=== PATIENT | male | born 1970 | race Caucasian/White ===

== ENCOUNTER → 2018-11-20 08:24 | Outpatient (CLI) | payer MEDICAID, SELFPAY ==
[2017-01-08 07:56] VITALS: BMI 34.7
[2018-11-20 10:24] LABS: Anion Gap 8 (5-15); BUN 18 mg/dL (7-18); BUN/Creat Ratio 17.6 RATIO (10-20); Calcium,Total 8.7 mg/dL (8.5-10.1); Chloride 105 mmol/L (98-107); Cholesterol 159 mg/dL (200); Creatinine, Serum 1.02 mg/dL (0.70-1.30); EST Glomerular Filtration Rate 82 mL/min (>60); Est Glom Filt Rate - Afr Amer 99 mL/min (>60); Glucose 86 mg/dL (74-106); High Density Lipoprotein 54 mg/dL; PSA,Total - Annual Screen 0.79 ng/mL (0.00-4.00); Potassium 4.4 mmol/L (3.5-5.1); Sodium Level 141 mmol/L (136-145); Triglycerides 70 mg/dL; Very Low Density Lipoprotein 14 mg/dL (5-40)
== END ==
PROVIDERS: Family Provider Family Medicine; PCP Family Medicine; Referring Provider Family Medicine; Visit Provider Family Medicine
DX: Z13.220 Encounter for screening for lipoid disorders (principal); Z12.5 Encounter for screening for malignant neoplasm of prostate; Z13.1 Encounter for screening for diabetes mellitus
CPT/HCPCS: 36415; 80048; 80061; 84153; G0103

== ENCOUNTER → 2019-11-11 09:14 | Outpatient (CLI) | payer OTHER, SELFPAY ==
[2017-01-08 07:56] VITALS: BMI 34.7
[2019-11-11 10:28] LABS: Absolute Lymphocyte Count 1.58 X10^3/uL (0.83-4.51); Absolute Neutrophil Count 3.2 X10^3/uL (2.0-7.7); Basophil# 0.04 X10^3/uL; Basophil% 0.7 % (0-1); Eosinophil# 0.21 X10^3/uL; Eosinophils% 3.8 % (0-5); Hematocrit 43.2 % (40-54); Hemoglobin 14.2 g/dL (13.0-16.5); Lymphocyte # 1.58 X10^3/ul (4.0); Lymphocyte % 28.6 % (19-41); Mean Corp Hgb Conc 32.9 g/dL (32-36); Mean Corpuscular Hgb 29.3 pg (27.0-32.0); Mean Corpuscular Volume 89.3 fL (80-94); Mean Platelet Vol. 10.3 fl (6.2-12.0); NRBC Flagged by Analyzer 0 % (0-5); Neutrophil # 3.19 X10^3/uL (2.7-7.7); Neutrophil % 57.7 % (47-70); Platelet Count 273 K/mm3 (150-450); RBC Distribution Width CV 12.8 % (11.6-14.6); RBC Distribution Width SD 42.5 fl (35.1-43.9); Red Blood Count 4.84 M/mm3 (4.6-6.2); White Blood Count 5.5 K/mm3 (4.4-11.0)
[2019-11-11 10:41] LABS: Erythrocyte Sedimentation Rate 41 mm/hr (0-20)
[2019-11-11 11:16] LABS: Vitamin D,25 Hydroxy 13.6 ng/mL (29.95-100.01)
[2019-11-11 11:39] LABS: ALB/GLOB Ratio 0.8 RATIO (0.9-2.4); AST(SGOT) 14 U/L (15-37); Alanine Aminotransfer ALT/SGPT 20 U/L (16-61); Albumin, Serum 3.9 g/dL (3.2-5.0); Alkaline Phosphatase 86 U/L (45-117); Anion Gap 5 (5-15); BUN 16 mg/dL (7-18); BUN/Creat Ratio 15.4 RATIO (10-20); Calcium,Total 9.1 mg/dL (8.5-10.1); Chloride 106 mmol/L (98-107); Creatinine, Serum 1.04 mg/dL (0.70-1.30); EST Glomerular Filtration Rate 80 mL/min (>60); Est Glom Filt Rate - Afr Amer 97 mL/min (>60); Globulin 4.7 g/dL (2.2-4.2); Glucose 89 mg/dL (74-106); Protein, Total 8.6 g/dL (6.4-8.2); Sodium Level 140 mmol/L (136-145); Thyroid Stim Hormone (TSH) 1.44 uIU/mL (0.358-3.74)
== END ==
PROVIDERS: Family Provider Family Medicine; PCP Family Medicine; Referring Provider Family Medicine; Visit Provider Family Medicine
DX: E55.9 Vitamin D deficiency, unspecified (principal); E66.9 Obesity, unspecified; Z12.5 Encounter for screening for malignant neoplasm of prostate
CPT/HCPCS: 36415; 80053; 82306; 84443; 85025; 85652

== ENCOUNTER → 2020-11-29 17:39 | Outpatient (CLI) | payer OTHER, SELFPAY ==
[2017-01-08 07:56] VITALS: BMI 34.7
--- NOTE | 2020-11-29 18:08 | MRI_ITS ---
STUDY: MRI BRAIN WITH AND WITHOUT CONTRAST REASON FOR EXAM: Male, 49 years old. 4th nerve palsy,double vision x 2 months TECHNIQUE: Standardized multiplanar fat and water weighted pulse sequences were obtained. IV 19cc dotarem was administered for the contrast portion of the examination. COMPARISON: None. FINDINGS: Normal size of the ventricles and extra-axial spaces for the patient''s age. Normal white matter tracts of the supratentorial brain. Normal bilateral basal ganglia. Normal thalami. There is no extra-axial fluid accumulation. Normal flow voids within the major intracranial circulation suggesting patency by spin echo criteria. Normal venous enhancement. There is no enhancing intra-axial or extra-axial abnormality. Normal sella turcica, pituitary gland, infundibular stalk, optic chiasm and hypothalamus. Normal tectal plate and pineal gland. Normal midbrain, anitra and medulla. Normal cerebellum. Normal basal cisterns. Normal bilateral temporal bones. Normal bilateral internal auditory canals. No demonstrated orbital abnormality, within the constraints of a routine brain study. Normal visualized paranasal sinuses. Normal calvarium and skull base. Normal visualized soft tissue structures. Normal visualized upper cervical spine. MRI/Brain W/WO Contrast IMPRESSION: Normal unenhanced and enhanced MRI of the brain. There is no abnormal mass in the posterior fossa are in the brainstem. The cavernous sinuses are unremarkable. Electronically Signed: Kymberly العراقي, at 23:55 EST Tel , Service support ,
== END ==
PROVIDERS: PCP Family Medicine; Referring Provider Family Medicine; Visit Provider Family Medicine
DX: H49.10 Fourth [trochlear] nerve palsy, unspecified eye (principal)
CPT/HCPCS: 70553; A9575

== ENCOUNTER → 2020-12-04 07:03 | Outpatient (CLI) | payer OTHER, SELFPAY ==
[2020-12-04 10:08] LABS: Erythrocyte Sedimentation Rate 14 mm/hr (0-20)
[2020-12-04 10:10] LABS: Absolute Lymphocyte Count 2.12 X10^3/uL (0.83-4.51); Absolute Neutrophil Count 3.4 X10^3/uL (2.0-7.7); Basophil# 0.04 X10^3/uL; Basophil% 0.6 % (0-1); Eosinophil# 0.25 X10^3/uL; Eosinophils% 3.9 % (0-5); Hematocrit 39.4 % (40-54); Hemoglobin 12.9 g/dL (13.0-16.5); Lymphocyte # 2.12 X10^3/ul (4.0); Lymphocyte % 32.8 % (19-41); Mean Corp Hgb Conc 32.7 g/dL (32-36); Mean Corpuscular Hgb 29.5 pg (27.0-32.0); Mean Platelet Vol. 10.4 fl (6.2-12.0); Monocyte# 0.64 X10^3/uL; Monocyte% 9.9 % (0-10); NRBC Flagged by Analyzer 0 % (0-5); Neutrophil % 52.6 % (47-70); Platelet Count 256 K/mm3 (150-450); RBC Distribution Width CV 12.7 % (11.6-14.6); RBC Distribution Width SD 42.1 fl (35.1-43.9); Red Blood Count 4.38 M/mm3 (4.6-6.2); White Blood Count 6.5 K/mm3 (4.4-11.0)
[2020-12-04 10:16] LABS: Vitamin D,25 Hydroxy 27.6 ng/mL
[2020-12-04 10:47] LABS: ALB/GLOB Ratio 0.8 RATIO (0.9-2.4); AST(SGOT) 13 U/L (15-37); Alanine Aminotransfer ALT/SGPT 23 U/L (16-61); Albumin, Serum 3.6 g/dL (3.2-5.0); Alkaline Phosphatase 74 U/L (45-117); Anion Gap 3 (5-15); BUN 17 mg/dL (7-18); BUN/Creat Ratio 16.2 RATIO (10-20); Calcium,Total 8.7 mg/dL (8.5-10.1); Chloride 107 mmol/L (98-107); Cholesterol 180 mg/dL (200); Creatinine, Serum 1.05 mg/dL (0.70-1.30); EST Glomerular Filtration Rate 79 mL/min (>60); Est Glom Filt Rate - Afr Amer 95 mL/min (>60); Globulin 4.4 g/dL (2.2-4.2); Glucose 101 mg/dL (74-106); High Density Lipoprotein 59 mg/dL; PSA,Total - Annual Screen 0.59 ng/mL (0.00-4.00); Potassium 4.3 mmol/L (3.5-5.1); Sodium Level 140 mmol/L (136-145); Thyroid Stim Hormone (TSH) 2.22 uIU/mL (0.358-3.74); Triglycerides 80 mg/dL; Very Low Density Lipoprotein 16 mg/dL (5-40)
== END ==
PROVIDERS: PCP Family Medicine; Referring Provider Family Medicine; Visit Provider Family Medicine
DX: Z13.220 Encounter for screening for lipoid disorders (principal); H05.10 Unspecified chronic inflammatory disorders of orbit; E55.9 Vitamin D deficiency, unspecified; Z12.5 Encounter for screening for malignant neoplasm of prostate
CPT/HCPCS: 36415; 80053; 80061; 82306; 84153; 84443; 85025; 85652; G0103

== ENCOUNTER → 2020-12-20 16:00 | Outpatient (CLI) | payer OTHER, SELFPAY ==
[2017-01-08 07:56] VITALS: BMI 34.7
== END ==
PROVIDERS: PCP Family Medicine; Referring Provider Family Medicine; Visit Provider Surgery
DX: Z20.828 Contact with and (suspected) exposure to other viral communicable diseases (principal)
CPT/HCPCS: 87426; C9803

== ENCOUNTER 2022-01-05 11:07 | Emergency (ER) | payer OTHER, SELFPAY ==
[2022-01-05 11:08] VITALS: BP 165/76; PULSE 78; RESP 20; TEMP 36.6; O2SAT 99; BMI 30.1
--- NOTE | 2022-01-05 11:29 | EDS_ITS ---
HPI History of Present Illness Chief Complaint: Lower Extremity Injury Narrative Narrative: Patient presents with right groin pain that has had for the last few days. He complains of sharp, searing sensation in his right quadriceps. He has had problems with iliotibial band, piriformis syndrome, and sciatica in the past but this does not feel the same. It is more on the inner aspect of his right thigh and in the inguinal area radiating downward. He denies any fevers or chills. No saddle anesthesias. No loss of bowel or bladder. He saw chiropractor the other day, 2 days ago, who did manipulation and release work on his right hip. Although he caused a bruise on his right hip from compressing the pelvis, patient had problems with his right groin prior to this. He presents for evaluation. He has been taking a Medrol Dosepak and naproxen without full relief of his symptoms. [facility] Medical History Crohn's disease Home Medications omega-3 fatty acids-fish oil [[place] 3 Fish Oil Softgel] 1 ea PO DAILY 01/08/17 [History Last Taken Unknown] cetirizine 10 mg PO DAILY 12/13/20 [History Last Taken Unknown] cholecalciferol (vitamin D3) 50 mcg PO DAILY 12/13/20 [History Last Taken Unknown] orphenadrine citrate 100 mg PO BID #20 tab 01/05/22 [Rx Last Taken Unknown] Allergy/AdvReac Type Severity Reaction Status Date / Time mercaptopurine Allergy fever Verified 01/05/22 11:10 Social History Smoking Status: Never smoker ROS ROS ED ROS Narrative Constitutional: No fever, no chills. HEENT: No sore throat. No neck pain. No loss of vision. No rhinorrhea. Cardiovascular: No chest pain. No palpitations. No pedal edema. Respiratory: No cough, no shortness of breath. Abdominal: No abdominal pain. No nausea. No vomiting. Genitourinary: No dysuria. No hematuria. Musculoskeletal: Right inguinal pain with radiation to quadriceps. Neurologic: No headaches. No dizziness. No lightheadedness. Skin: No rash. No change in color. Psychiatric: No depression. No anxiety. EXAM Physical Exam Narrative Exam Narrative: Afebrile. Vital signs noted. HEENT: Normocephalic. Atraumatic. PERRL, EOMI. Neck soft and supple. No point tenderness or step off. Cardiovascular: Regular rate and rhythm. No murmurs, rubs, or gallops appreciated. Respiratory: No tachypnea. Lungs clear to auscultation bilaterally. Gastrointestinal: Abdomen soft, nontender, with normoactive bowel sounds. No rebound or guarding. Neurological: Awake. Alert. Nonfocal, nonlateralizing. Skin: No rash. Normal color. No pallor. Musculoskeletal: No pedal edema. Full range of motion extremities. Pelvis stable. No vertebral point tenderness or step-off of lumbar area. No pain in sciatic notch. Neurovascular intact distally. Straight leg raising is negative bilaterally. DTRs equal and symmetric. No tenderness to inguinal area, no palpable hernia. Const Vital Signs: 01/05/22 11:08 Temperature 97.9 F Temperature Source Temporal Pulse Rate 78 Respiratory Rate 20 H Blood Pressure 165/76 H Blood Pressure Mean 105 Pulse Ox 99 Oxygen Delivery Method Room Air MDM MDM MDM Narrative Medical decision making narrative: X-rays will be obtained of the hip and pelvis. He is already on anti-inflammatories. He will be given an intramuscular injection of Norflex here in the emergency department. His x-rays show no evidence of fracture or degenerative changes. Upon repeat examination, he is resting comfortably. He feels mildly improved. He will rest the area and ice the affected area over the next few days and follow-up with his primary care physician. He was given a prescription for Norflex tablets for the next 10 days. He will finish his anti-inflammatories/Medrol dose pack. I feel he can be discharged safely home with follow-up. Return instructions to the emergency department were reviewed. Disposition is discharged home in stable condition. Radiography Diagnostic Testing: Clinical Impression(s) from Imaging Studies Hip/Pelvis X-Ray 01/05/22 11:35 IMPRESSION: No demonstrated acute osseous changes. Electronically Signed: Anastacio Velez, at 11:51 EST , Discharge Plan Triage Chief Complaint: Lower Extremity Injury ED Provider: Tito Kelley Dx/Rx/DC Orders Clinical Impression: Right groin pain Instructions: Medicine for Pain, ED Hip Strain Prescriptions: New orphenadrine citrate 100 mg tablet extended release 100 mg PO BID Qty: 20 RF: 0 No Action One-Per-Day [place]-3 1 EACH capsule,delayed release(DR/EC) 1 ea PO DAILY RF: 0 cholecalciferol (vitamin D3) 50 MCG tablet 50 mcg PO DAILY RF: 0 cetirizine 10 MG capsule 10 mg PO DAILY RF: 0 Primary Care Provider: Aniket Paulson Referrals: Aniket Paulson MD [Primary Care Provider] - 3-5 Days if not improving Disposition Disposition: Home, Self Care
--- NOTE | 2022-01-05 11:35 | RAD_ITS ---
STUDY: X-RAY - PELVIS AND RIGHT HIP REASON FOR EXAM: Male, 51 years old. Pain TECHNIQUE: 3 views of the pelvis and hip. COMPARISON: None. FINDINGS: There is a non-specific bowel gas pattern. Surgical clips in the region of the scrotum. Normal bilateral iliac wings, sacroiliac joints and visualized sacrum. Normal bilateral superior and inferior pubic rami. Normal pubic symphysis. Normal bilateral ischial tuberosities. Normal visualized femoral head. Normal acetabulum. Normal hip joint. RAD/HIP, UNI W/ Pelvis 2-3 Views IMPRESSION: No demonstrated acute osseous changes. Electronically Signed: Anastacio Velez, at 11:51 EST ,
[2022-01-05] MEDS: Orphenadrine 60 MG/2 ML Ampul IM (11:43)
[2022-01-05 12:09] VITALS: PULSE 84; RESP 16; O2SAT 99
--- NOTE | 2022-01-05 12:09 | ED.RN ---
THIS NURSE REVIEWED D/C INSTRUCTIONS WITH PT AND VISITOR. BOTH VERBALIZED UNDERSTANDING OF INSTRUCTIONS. PT DENIES FURTHER NEEDS OR QUESTIONS AT THIS TIME.
== END 2022-01-05 12:10 | disposition home or self-care (01) ==
PROVIDERS: Emergency Provider Emergency Medicine; PCP Family Medicine; Visit Provider Emergency Medicine
DX: R10.31 Right lower quadrant pain (principal); K50.90 Crohn's disease, unspecified, without complications; S70.01XA Contusion of right hip, initial encounter; X58.XXXA Exposure to other specified factors, initial encounter
CPT/HCPCS: 73502; 96372; 99282

== ENCOUNTER 2022-01-12 11:24 | Emergency (ER) | payer OTHER, SELFPAY ==
[2022-01-12 11:25] VITALS: BP 144/88; PULSE 61; RESP 16; TEMP 36.6; O2SAT 99; BMI 30.4
--- NOTE | 2022-01-12 11:47 | ED.VIS.LOWEX ---
HPI <HARRY Briceño - Last Filed: 01/12/22 13:42> History of Present Illness Chief Complaint: Lower Extremity Injury Narrative Narrative: 51-year-old male presents with right groin pain x2 weeks. He has a sharp painful sensation in his right inguinal crease and right quadriceps that is worse with hip extension or bearing weight. Pain is on the inner aspect of his right thigh and radiates downward. He occasionally has tingling in the medial lower calf. He feels most comfortable keeping his right hip externally rotated. No back pain. No fever, saddle anesthesia, or bladder/bowel incontinence. There was no trauma. He saw a chiropractor with manipulation which did not help. He was seen at the ER on 01/05 and had x-rays of his hip and pelvis which were negative. He has been taking prednisone, naproxen, and Flexeril without relief. [facility] <HARRY Briceño - Last Filed: 01/12/22 13:42> [facility] Medical History Crohn's disease Home Medications omega-3 fatty acids-fish oil [[place] 3 Fish Oil Softgel] 1 ea PO DAILY 01/08/17 [History Last Taken Unknown] cetirizine 10 mg PO DAILY 12/13/20 [History Last Taken Unknown] cholecalciferol (vitamin D3) 50 mcg PO DAILY 12/13/20 [History Last Taken Unknown] orphenadrine citrate 100 mg PO BID #20 tab 01/05/22 [Rx Last Taken Unknown] cyclobenzaprine mg 01/12/22 [History Last Taken Unknown] hydrocodone-acetaminophen 1 tab PO Q6H PRN PRN 3 Days #12 tablet 01/12/22 [Rx Last Taken Unknown] methylprednisolone [Medrol (Maged)] 01/12/22 [History Last Taken Unknown] Allergy/AdvReac Type Severity Reaction Status Date / Time mercaptopurine Allergy fever Verified 01/12/22 11:27 Social History Smoking Status: Never smoker ROS <HARRY Briceño - Last Filed: 01/12/22 13:42> ROS ED ROS Narrative Constitutional: Negative for fever, chills, malaise. Eyes: Negative for visual change. ENT: Negative for sore throat, ear pain, rhinorrhea. CVS: Negative for palpitations, chest pain, syncope. Respiratory: Negative for shortness of breath, cough, orthopnea. GI: Negative for abdominal pain, nausea, vomiting, diarrhea, constipation, melena, hematochezia. : Negative for dysuria, hematuria or frequency. Neuro: Negative for headache, motor/sensory dysfunction. Skin: Negative for rash, abscess, or wound. Musc: Positive for leg pain. No swelling or trauma. Heme: Negative for easy bruising, bleeding, lymphadenopathy. EXAM <HARRY Briceño - Last Filed: 01/12/22 13:42> Physical Exam Narrative Exam Narrative: CONST: Patient sitting in no acute distress. EYES: Normal inspection. NECK: Normal inspection. RESP: No respiratory distress, CTAB. CVS: Regular rate and rhythm, no murmur, no gallop. ABD: Soft and nontender, no guarding or rebound, nondistended. No tenderness in the inguinal area and no palpable hernia. Back: Normal inspection. No midline spinal tenderness, no step off or crepitus. SKIN: Color normal, no rash, warm, dry, intact. EXTREMITIES: Normal appearance, no pedal edema. Full range of motion of bilateral lower extremities. 5/5 strength in bilateral hip flexion, knee flexion/extension, and DF/PF. Normal sensation to light touch. 2+ dorsalis pedis pulses. Straight leg raise negative bilaterally. 2+ patellar and ankle reflexes. NEURO: Oriented x4. PSYCH: Normal affect. Const Vital Signs: 01/12/22 11:25 Temperature 97.8 F Temperature Source Temporal Pulse Rate 61 Respiratory Rate 16 Blood Pressure 144/88 H Blood Pressure Mean 106 Pulse Ox 99 Oxygen Delivery Method Room Air <Dr. Duyen Ramos MD - Last Filed: 01/12/22 14:09> Physical Exam Const Vital Signs: 01/12/22 11:25 Temperature 97.8 F Temperature Source Temporal Pulse Rate 61 Respiratory Rate 16 Blood Pressure 144/88 H Blood Pressure Mean 106 Pulse Ox 99 Oxygen Delivery Method Room Air MDM <HARRY Briceño - Last Filed: 01/12/22 13:42> [facility] MDM Narrative Medical decision making narrative: Patient presents with atraumatic right inguinal pain radiating down his medial thigh. He appears well nontoxic. Vital signs are within normal limits. On exam he has no midline spinal tenderness or step-offs. His abdomen is soft and nontender with no hernias. There is no reproducible pain in the inguinal region or lower extremities. Bilateral lower extremities appear normal and are neurovascularly intact. Negative straight leg raise bilaterally. He has no reported back pain and no signs or symptoms concerning for cauda equina syndrome or epidural abscess. A few days ago he had plain films of the hip and pelvis which were negative. CT of the pelvis was obtained today and shows no acute findings. Patient symptoms are most consistent with muscular versus nerve impingement in that area. He is already taking muscle relaxers and prednisone at home. I prescribed [place] to take as needed and referred him to orthopedics. He was agreeable with this plan and discharged in stable condition. Diagnosis 1. Right lower extremity pain Radiography Diagnostic Testing: Clinical Impression(s) from Imaging Studies Pelvis CT 01/12/22 11:57 IMPRESSION: Normal unenhanced CT of the pelvis. Electronically Signed: Jesse Savage MD at 13:15 EST , <Dr. Duyen Ramos MD - Last Filed: 01/12/22 14:09> MDM Radiography Diagnostic Testing: Clinical Impression(s) from Imaging Studies Pelvis CT 01/12/22 11:57 IMPRESSION: Normal unenhanced CT of the pelvis. Electronically Signed: Jesse Savage MD at 13:15 EST , Treatment and Re-Evaluation Comments:: Patient seen and evaluated with PA. Patient independently evaluated and examined. In short patient presents with 1-1/2-week history of right groin and medial thigh pain. No known injury. Patient is currently on steroids, muscle relaxers, tramadol. Patient lying in bed no acute distress. Head and neck examination normal. Heart is regular rate and rhythm. Lung sounds are clear. Abdomen is soft and nontender. Right lower extremity examination shows minimal tenderness to the proximal right groin. No palpable hernias. Strong pulse noted. Good range of motion at hip. Strong distal pulses in the lower leg. Patient given analgesics here. Pelvis CT scan obtained to ensure no deep underlying cause of symptoms. This is unremarkable. Patient referred to orthopedics for follow-up and will be written for [place] to take in place of tramadol. Discharge Plan Triage Chief Complaint: Lower Extremity Injury ED Provider: Alee Kaufman Dx/Rx/DC Orders Clinical Impression: Right groin pain Instructions: ED Leg Spasm Prescriptions: New hydrocodone-acetaminophen 5-325 mg tablet 1 tab PO Q6H PRN PRN (Reason: Pain) 3 Days Qty: 12 RF: 0 No Action One-Per-Day [place]-3 1 EACH capsule,delayed release(DR/EC) 1 ea PO DAILY RF: 0 cholecalciferol (vitamin D3) 50 MCG tablet 50 mcg PO DAILY RF: 0 cetirizine 10 MG capsule 10 mg PO DAILY RF: 0 orphenadrine citrate 100 mg tablet extended release 100 mg PO BID Qty: 20 RF: 0 cyclobenzaprine 10 mg tablet RF: 0 methylprednisolone [Medrol (Maged)] 4 mg tablets,dose pack RF: 0 Primary Care Provider: Aniket Paulson Referrals: Aniket Paulson MD [Primary Care Provider] - Girish Mendenhall MD [STAFF PHYSICIAN] - Activity Restrictions/Additional Instructions: The CAT scan of your pelvis/hip showed no acute findings. With the radiation of your pain down her thigh you may be having a nerve or muscle issue that needs further evaluation by orthopedics. I provided an orthopedic referral listed above and he should call to make an appointment. I prescribed [place] which you can take instead of the tramadol in addition to the other medications you are already on at home. Disposition Disposition: Home, Self Care Discharge Date/Time: 01/12/22 13:50
--- NOTE | 2022-01-12 11:57 | CT_ITS ---
STUDY: CT PELVIS WITHOUT CONTRAST REASON FOR EXAM: Male, 51 years old. right groin pain into medial thigh RADIATION DOSAGE (If Supplied By Facility): CTDIvol = ( 12.57 ) mGy, DLP = ( 479.51 ) mGycm TECHNIQUE: Transaxial imaging of the pelvis was performed without oral contrast, and without intravenous administration of contrast material. Individualized dose optimization techniques were used for this CT. COMPARISON: X-ray 01/05/2022 FINDINGS: Normal urinary bladder. Normal visualized small intestine. Normal visualized colon. There is no pelvic fluid. There is no pelvic mass lesion or lymphadenopathy. Normal visualized pelvic arteries. Normal abdominal wall. Normal osseous structures. CT/Pelvis without IV Contrast IMPRESSION: Normal unenhanced CT of the pelvis. Electronically Signed: Jesse Savage MD at 13:15 EST ,
[2022-01-12] MEDS: Orphenadrine 60 MG/2 ML Ampul IM (11:59)
[2022-01-12] MEDS: Ondansetron ODT 4 MG Tablet PO (12:00)
[2022-01-12] MEDS: Ketorolac 15 MG/ML Vial IM (12:06)
[2022-01-12] MEDS: HYDROcodone Bitartrate/Apap 5/325 Tablet PO (13:45)
== END 2022-01-12 13:50 | disposition home or self-care (01) ==
PROVIDERS: Emergency Provider Physician Assistant; PCP Family Medicine; Visit Provider Physician Assistant
DX: M79.604 Pain in right leg (principal); K50.90 Crohn's disease, unspecified, without complications; R10.31 Right lower quadrant pain; Z79.899 Other long term (current) drug therapy
CPT/HCPCS: 72192; 96372; 99283

== ENCOUNTER 2022-01-14 14:55 | Outpatient (CLI) | payer OTHER, SELFPAY ==
--- NOTE | 2022-01-14 15:01 | RAD_ITS ---
STUDY: X-RAY - LUMBOSACRAL SPINE REASON FOR EXAM: Male, 51 years old. LOW BACK PAIN TECHNIQUE: 7 view(s) of the lumbosacral spine were obtained. COMPARISON: 12/26/2015 FINDINGS: Normal lumbar lordosis. Mild dextroscoliosis centered at L4. There is normal alignment of the vertebrae. No subluxation on the flexion or extension views to suggest instability. There is multilevel endplate spondylosis of the lumbar vertebrae. There is multi-level degenerative disc disease with multi-level disc space narrowing. Normal bilateral sacral ala, sacroiliac joints, and visualized sacrum. Normal visualized soft tissue structures. RAD/L/S Spine w Bend Min 6 Vw IMPRESSION: Mild dextroscoliosis with diffuse degenerative disc disease. No instability. Electronically Signed: Jesse Savage MD at 15:41 EST ,
== END 2022-01-14 23:59 | disposition home or self-care (01) ==
LOC: MTLAB 14:58
PROVIDERS: PCP Family Medicine; Referring Provider Physician Assistant Surgical; Visit Provider Physician Assistant Surgical
DX: M24.851 Other specific joint derangements of right hip, not elsewhere classified (principal); M54.50 Low back pain, unspecified
CPT/HCPCS: 72114

== ENCOUNTER 2022-01-18 14:13 | Outpatient (CLI) | payer OTHER, SELFPAY ==
--- NOTE | 2022-01-18 14:14 | MRI_ITS ---
EXAM: MR RIGHT LOWER EXTREMITY WITHOUT INTRAVENOUS CONTRAST, HIP CLINICAL INDICATION: Severe RIGHT groin and leg pain, numbness, muscle cramping TECHNIQUE: Multiplanar and multisequence MR images of the right hip without intravenous contrast. This report was created using [employer] report generation technology. COMPARISON: Jan 12 2022 12:39pm ct FINDINGS: TENDONS: FLEXORS: Unremarkable. Intact. EXTENSORS/HAMSTRING: Unremarkable. Intact. ABDUCTORS: Unremarkable. Intact. ADDUCTORS: Unremarkable. Intact. ROTATORS: Unremarkable. Intact. MUSCLES: Unremarkable. Normal bulk and signal. FLUID: Unremarkable. No joint effusion. No trochanteric bursitis. LABRUM: Unremarkable. No evidence of a tear on this non-arthrogram exam. CARTILAGE: Unremarkable. Articular cartilage intact. BONES/JOINTS: Degenerative findings visualized in the lower lumbar spine. No femoral neck fracture. No avascular necrosis of the femoral head. No sacral insufficiency fracture. No suspicious bone marrow signal alteration. OTHER SOFT TISSUES: Unremarkable. LYMPH NODES: Benign-appearing right inguinal lymph nodes. BOWEL: There is an umbilical hernia containing fat. There is no bowel involvement. There is no incarceration. There is no findings suggesting that this is causing a bowel obstruction. MRI/Lower Ext Joint Only (Routine) IMPRESSION: Degenerative findings visualized in the lower lumbar spine. There are no acute findings of the right hip. Electronically Signed: Ronnie Quiroz MD at 16:54 EST Reading Location ID and State: [id number] / [place] , Service support ,
--- NOTE | 2022-01-18 14:14 | MRI_ITS ---
STUDY: MR Spine Lumbar W/O Contrast 01/18/2022 4:23 PM REASON FOR EXAM: Male, 51 years old. Back pain Severe RIGHT groin and leg pain, numbness, muscle cramping TECHNIQUE: MR Spine Lumbar W/O Contrast Standardized fat and water weighted pulse sequences were obtained. COMPARISON: 01.14.22 xr FINDINGS: T12-L1: Normal endplates. Normal disc height, hydration and morphology. Normal bilateral facet joints. Normal central canal and bilateral lateral recesses. Normal bilateral intervertebral neural foramina. Normal lumbar lordosis. There is no substantial scoliosis. Normal conus medullaris that terminates at the T12-L1. L1-2: Loss of intervertebral disc height. There is endplate spondylosis of the vertebral body. Normal central canal and intervertebral neuroforamina. There is bilateral facet arthropathy. L2-3: Loss of intervertebral disc height. There is endplate spondylosis of the vertebral body. There is bilateral facet arthropathy. Bilateral neural foraminal stenosis. Compression of exiting nerve roots. Posterior disc herniation. Narrowing of the lateral recess. No significant spinal stenosis. L3-4: Loss of intervertebral disc height. There is endplate spondylosis of the vertebral body. There is bilateral facet arthropathy. Bilateral neural foraminal stenosis. Compression of exiting nerve roots. Posterior disc herniation. Narrowing of the lateral recess. No significant spinal stenosis. L4-5: Loss of intervertebral disc height. There is endplate spondylosis of the vertebral body. There is bilateral facet arthropathy. Bilateral neural foraminal stenosis. Compression of exiting nerve roots. Posterior disc herniation. Narrowing of the lateral recess. No significant spinal stenosis. L5-S1: Loss of intervertebral disc height. There is endplate spondylosis of the vertebral body. There is bilateral facet arthropathy. There is bilateral ligamentum flavum thickening. Normal visualized sacral ala. Normal visualized paraspinous soft tissue structures. MRI/Spine Lumbar (Routine) IMPRESSION: Multilevel degenerative changes, as described above. L2-3 to L4-5. Posterior disc herniation. Narrowing of the lateral recess. No significant spinal stenosis. Electronically Signed: Ronnie Quiroz MD at 16:28 EST ,
== END 2022-01-18 23:59 | disposition home or self-care (01) ==
LOC: MRI 14:14
PROVIDERS: PCP Family Medicine; Visit Provider Orthopaedic Surgery
DX: M87.059 Idiopathic aseptic necrosis of unspecified femur (principal); M51.27 Other intervertebral disc displacement, lumbosacral region
CPT/HCPCS: 72148; 73721

== ENCOUNTER 2022-01-21 20:38 | Observation (INO) | payer OTHER, SELFPAY ==
[2022-01-21 20:40] VITALS: BP 173/125; PULSE 128; RESP 24; TEMP 35.6; O2SAT 99; BMI 29.2
[2022-01-21 21:37] VITALS: RESP 18
--- NOTE | 2022-01-21 22:40 | EDS_ITS ---
HPI History of Present Illness HPI Narrative: Right side pain and muscle spasms. Chief Complaint: Lower Extremity Injury Informant: patient and spouse/S.O. 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 Patient has developed in the last 2 weeks pain in his right hip and thigh. He has seen orthopedic physicians today he saw Dr. Campbell the orthopedic spine surgeon. 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 He also saw tumbling barrel painter Dr. Zhu today who did a Kenalog and lidocaine injections to his thigh. And he is having worse pain tonight. He is also recently seen a chiropractor who did manipulation and dry needling of his leg again without significant relief. They are planning to do a nerve block once he has insurance approval. Prior similar symptoms: Yes Recent Illness/Hospitalization: No PFSH [facility] Medical History Crohn's disease Home Medications cyclobenzaprine 10 mg PO 01/12/22 [History Last Taken Unknown] diazepam 01/21/22 [History Last Taken Unknown] docusate sodium 100 mg capsule 100 mg PO DAILY 01/21/22 [History Last Taken Unknown] gabapentin 300 mg capsule 300 mg PO cap 01/21/22 [History Last Taken Unknown] naproxen sodium 220 mg capsule 220 mg PO BID PRN 01/21/22 [History Last Taken Unknown] sennosides 8.6 mg tablet 8.6 mg PO DAILY 01/21/22 [History Last Taken Unknown] Allergy/AdvReac Type Severity Reaction Status Date / Time mercaptopurine Allergy fever Verified 01/21/22 20:43 Family History Grandfather Cancer Mother Hypertension Social History Smoking Status: Never smoker ROS ROS ED ROS Narrative Denies recent illness. Review of Systems ROS Unobtainable: Denies due to encephalopathy Constitutional Constitutional ED: Denies fever(s) Eyes Eyes: Denies change in vision ENT ENT ED: Denies ear pain Cardiovascular Cardiovascular: Denies chest pain Respiratory/Chest Respiratory/Chest: Denies dyspnea Gastrointestinal Gastrointestinal: Denies abdominal pain Genitourinary Genitourinary ED: Denies dysuria Musculoskeletal Musculoskeletal: Denies myalgias Integumentary Denies rash Neurologic Neurologic: Denies headache(s) Psychiatric Psychiatric: Denies depression Endocrine Endocrinology: Denies polyuria Hematologic/Lymphatic Hematologic/Lymphatic: Denies easy bruising Allergic/Immunologic Allergic/Immunologic ED: Denies urticaria EXAM Physical Exam Narrative Exam Narrative: 51-year-old male. Vital signs are stable as of his blood pressure is elevated 173/125. He is in obvious pain. H EENT exam unremarkable. Neck nontender. Lungs are clear equal symmetrical with. Heart tachycardic rate about 125. Chest were nontender. Abdomen soft nontender normal bowel sounds no peritoneal signs. He is moving all 4 extremities. He has normal motor strength and sensation of both lower extremities. He is a strong DP pulse in his right lower leg. Dorsi plantarflexion intact. Normal sensation. He has a bruise on his right thigh from the manipulation a week or so ago. He has normal flexion-extension of his right hip, knee and ankle and foot. Calf is nontender is no edema. There is injections on his right thigh but there is no redness or warmth no signs of infection. No significant swelling. He has mild quad atrophy compared to the left. Const Vital Signs: 01/21/22 20:40 01/21/22 21:37 01/21/22 23:02 Temperature 96.1 F L Temperature Source Temporal Pulse Rate 128 H Respiratory Rate 24 H 18 18 Blood Pressure 173/125 H Blood Pressure Mean 141 Pulse Ox 99 Oxygen Delivery Method Room Air 01/22/22 00:15 Temperature 97.9 F Temperature Source Temporal Pulse Rate 75 Respiratory Rate 16 Blood Pressure 135/85 H Blood Pressure Mean 101 Pulse Ox 100 Oxygen Delivery Method Room Air Positive well nourished and well developed; Negative for obese, cachectic, contractures or unkempt General Appearance ED: well developed and NAD; Negative for unkempt, cachectic or contractures Nutritional Appearance: Negative for cachectic or obese HEENT Reports moist mucous membranes normocephalic and atraumatic Neck full ROM and supple Thyroid: Negative for tender Chest Wall inspection of chest normal and palpation of chest normal Resp normal respiratory effort, no retractions and clear to auscultation bilaterally Auscultation: Negative for rales, rhonchi or wheezes Cardio regular rhythm, S1 normal heart sound, S2 normal heart sound and no murmurs; Negative for regular rate Rate: tachycardic GI non-tender, non-distended and no masses Inspection: Negative for abdominal distention Auscultation: normoactive bowel sounds; Negative for hyperactive bowel sounds or hypoactive bowel sounds Palpation: soft; Negative for tender, guarding or rebound tenderness present Back/Spine no CVA tenderness General Back: Negative for CVA tenderness Extremity normal to inspection and full ROM General Extremety ED: Negative for cyanosis or edema General Extremity: Negative for cyanosis or edema Neuro oriented x3 and moves all extremities Sensorium / Orientation: alert, oriented to person, oriented to place and oriented to time; Negative for orientation impaired, confused, lethargic or stuporous Motor Exam: strength 5/5 throughout Psych mental status grossly normal Appearance: Negative for unkempt Mood & Affect: Negative for anxious Skin no wounds Lesions: no lesions Rashes: no rashes Trauma: Negative for abrasion or laceration MDM MDM MDM Narrative Medical decision making narrative: Patient with right thigh pain. He has had this condition now about 2 to 3 weeks. He does not have a specific diagnosis. Today after having injections at the site he is having more muscle spasms and increased pain. There is no signs of infection. There is no signs of any vascular issue. He has normal strength and range of motion. Patient be treated with IV Dilaudid, Toradol and Zofran for nausea. And reassess. He is already had this worked up with both MRIs and imaging. No further testing to do at this time. Repeat exam patient is doing much better at 12:15 AM. His pain is significantly improved. With movement he has recurrence of the pain but is much better than his presentation. Again in his right lower extremity otherwise is neurovascularly intact. Normal strength. Sensation. Dorsi plantarflexion. DP pulse. No signs of infection. No redness or swelling. Patient requested admission for pain control I have the hospitalist on page. Discharge Plan Triage Chief Complaint: Lower Extremity Injury ED Provider: Mike Caballero Dx/Rx/DC Orders Clinical Impression: Neuropathic pain, Intractable pain Prescriptions: No Action gabapentin 300 mg capsule 300 mg PO RF: 0 naproxen sodium 220 mg capsule 220 mg PO BID PRNRF: 0 docusate sodium [Stool Softener] 100 mg capsule 100 mg PO DAILY RF: 0 sennosides [Vegetable Laxative] 8.6 mg tablet 8.6 mg PO DAILY RF: 0 cyclobenzaprine 10 mg tablet 10 mg PO RF: 0 diazepam 5 mg tablet RF: 0 Primary Care Provider: Aniket Paulson Referrals: Aniket Paulson MD [Primary Care Provider] - Disposition Disposition: Acute Care Hospital [facility]
[2022-01-21] MEDS: Ketorolac 30 MG/ML Syringe IV (22:53)
[2022-01-21] MEDS: HYDROmorphone 1 MG/ML Syringe IV (22:53)
[2022-01-21] MEDS: Ondansetron 4 MG/2 ML Vial IV (22:53)
[2022-01-21 23:02] VITALS: RESP 18
[2022-01-22 00:15] VITALS: BP 135/85; PULSE 75; RESP 16; TEMP 36.6; O2SAT 100
--- NOTE | 2022-01-22 00:36 | HP.PCM_ITS ---
HPI - General General Date of Admission: 01/22/22 HPI Narrative DENISSE ACKERMAN, is a 51 M who presents to the emergency room with intractable pain in his right quadricep. Patient has significant pain over the last several weeks of pain in the right leg for which she is seeing me in the office and diagnosed with rectus for Viraj muscle strain who was also given referral to orthopedic surgery for evaluation of possibility for lower spine issues. MRI of the lower spine is unremarkable based on assessment by Dr. Campbell. Earlier today the patient was given steroid injections into the quadricep muscle at 3 locations. The patient had subsequent excruciating pain upon arriving at home rating it 10/10. He was unable to get comfortable and he was near the point of screaming. Patient has received some Dilaudid in the emergency room and had minor relief of symptoms along with a dose of Toradol. He will be admitted for further pain management overnight for observation. [facility] Medical History Crohn's disease Home Medications cyclobenzaprine 10 mg PO 01/12/22 [History Last Taken Unknown] diazepam 01/21/22 [History Last Taken Unknown] docusate sodium 100 mg capsule 100 mg PO DAILY 01/21/22 [History Last Taken Unknown] gabapentin 300 mg capsule 300 mg PO cap 01/21/22 [History Last Taken Unknown] naproxen sodium 220 mg capsule 220 mg PO BID PRN 01/21/22 [History Last Taken Unknown] sennosides 8.6 mg tablet 8.6 mg PO DAILY 01/21/22 [History Last Taken Unknown] Allergy/AdvReac Type Severity Reaction Status Date / Time mercaptopurine Allergy fever Verified 01/21/22 20:43 Family History Grandfather Cancer Mother Hypertension Social History Smoking Status: Never smoker ROS Constitutional Constitutional: Denies chills or fever(s) Eyes Eyes: Denies blurry vision ENT HEENT: Denies abnormal hearing Cardiovascular Cardiovascular: Denies chest pain Respiratory/Chest Respiratory/Chest: Denies cough Gastrointestinal Gastrointestinal: Denies abdominal pain Genitourinary Genitourinary: Denies dysuria Musculoskeletal Musculoskeletal: Reports extremity pain Integumentary Integumentary: Denies dry skin Neurologic Neurologic: Reports abnormal gait Psychiatric Psychiatric: Denies anxiety Vital Signs Vital Signs Vital Signs: 01/21/22 20:40 01/21/22 21:37 01/21/22 23:02 Temperature 96.1 F L Temperature Source Temporal Pulse Rate 128 H Respiratory Rate 24 H 18 18 Blood Pressure 173/125 H Blood Pressure Mean 141 Pulse Ox 99 Oxygen Delivery Method Room Air 01/22/22 00:15 Temperature 97.9 F Temperature Source Temporal Pulse Rate 75 Respiratory Rate 16 Blood Pressure 135/85 H Blood Pressure Mean 101 Pulse Ox 100 Oxygen Delivery Method Room Air Weight Weight: 204 lb Body Mass Index (BMI) 29.2 Physical Exam Const oriented x3 HEENT head/scalp atraumatic Eyes PERRL Neck supple Resp normal respiratory effort and clear to auscultation bilaterally Cardio regular rate, regular rhythm, S1 normal heart sound and S2 normal heart sound GI normal to inspection, nondistended, normoactive bowel sounds Extremity Extremity Narrative: tenderness/spasm of right quad Skin General Skin Exam: no breakdown Neuro CN's II-XII intact bilaterally Psych affect normal Assessment & Plan Assessment/Plan (1) Neuropathic pain: (2) Intractable pain: (3) Quadriceps weakness: PLAN: 1 intractable pain of right quadricep muscle?admit patient for observation overnight- continue Dilaudid 1 mg IV daily 3 hours as needed significant pain, 3 start cyclobenzaprine 10 mg p.o. 3 times daily, restart Neurontin 300 mg p.o. 3 times daily. If pain is resolved patient may be discharged to follow-up with pathology as an outpatient otherwise he may need inpatient consult with pain management. Charges/Coding Visit Charges OBSV E&M: 87411 Initial observation care L2
[2022-01-22 01:19] VITALS: BMI 29.0
[2022-01-22 01:32] VITALS: BP 150/89; PULSE 72; RESP 18; TEMP 36.9; O2SAT 100
[2022-01-22] MEDS: Gabapentin 300 MG Capsule PO ×3 (01:44→12:27)
[2022-01-22] MEDS: cycloBENZAPRine HCl 10 MG Tablet PO ×3 (01:44→14:26)
[2022-01-22] MEDS: HYDROmorphone 1 MG/ML Syringe IV ×3 (01:51→15:34)
[2022-01-22] MEDS: 0.9% Saline Lock 10 ML Syringe IV ×3 (01:51→15:37)
[2022-01-22 05:50] LABS: Absolute Lymphocyte Count 0.91 X10^3/uL (0.83-4.51); Absolute Neutrophil Count 9.3 X10^3/uL (2.0-7.7); Basophil# 0.01 X10^3/uL; Basophil% 0.1 % (0-1); Eosinophil# 0.01 X10^3/uL; Eosinophils% 0.1 % (0-5); Hematocrit 41.6 % (40-54); Hemoglobin 14.7 g/dL (13.0-16.5); Lymphocyte # 0.91 X10^3/ul (0.83-4.51); Lymphocyte % 8.4 % (19-41); Mean Corp Hgb Conc 35.3 g/dL (32-36); Mean Corpuscular Hgb 29.9 pg (27.0-32.0); Mean Corpuscular Volume 84.6 fL (80-94); Monocyte# 0.58 X10^3/uL; Monocyte% 5.3 % (0-10); NRBC Flagged by Analyzer 0 % (0-5); Neutrophil # 9.33 X10^3/uL (2.7-7.7); Neutrophil % 85.7 % (47-70); Platelet Count 319 K/mm3 (150-450); RBC Distribution Width CV 12.8 % (11.6-14.6); RBC Distribution Width SD 39.3 fl (35.1-43.9); Red Blood Count 4.92 M/mm3 (4.6-6.2); White Blood Count 10.9 K/mm3 (4.4-11.0)
[2022-01-22 06:08] VITALS: BP 120/75; PULSE 93; RESP 16; TEMP 36.6; O2SAT 97
[2022-01-22 06:33] LABS: Anion Gap 8 (5-15); BUN 26 mg/dL (7-18); BUN/Creat Ratio 20.6 RATIO (10-20); Chloride 104 mmol/L (98-107); Creatinine, Serum 1.26 mg/dL (0.70-1.30); EST Glomerular Filtration Rate 64 mL/min (>60); Est Glom Filt Rate - Afr Amer 77 mL/min (>60); Estimated Creatinine Clearance 70.01 ml/min; Glucose 133 mg/dL (74-106); Potassium 4.4 mmol/L (3.5-5.1); Sodium Level 136 mmol/L (136-145)
--- NOTE | 2022-01-22 10:25 | CASEMGMT ---
SANG BOYER Assessment: Face to Face with pt for initial transition planning/care coordination assessment. SANG BOYER introduced self and role at [facility], pt voices understanding and consents to assessment. Pt is A/O x4 and answers all questions appropriately at this time. Pt lying in bed in, stating his pain is 3/10. Care providers, pharmacy, and demographics verified/updated. Admitting Dx: intractable pain right lower extremity PCP:Lorene Specialists: Ronaldo, pain mgmt; Adrian, spine; Crissyruruth, ortho Preferred Pharmacy: [facility] Insurance: [employer] Prescription Benefit: yes LW/HPOA: Pthas a LW/DPOA on file at [facility]. His DPOA is his Inés Cantu. LNOK: Inés Cantu, ; Govind Cantu, son Living Arrangements: Pt lives with and three sons in a two story house with two steps to enter. Pt reports prior to this pain he was I in ADL's. Transportation: Pt previously drove but has not driven in a week to 10 days d/t pain. Pt can assist with transportation. DME/HHC/SNF: Pt has crutches at home, has had [facility] HHC in the past and denies SNF stays. Pt states no concerns with going home at time of dc. Pt has an appt at 4:30pm today with Dr. Higgins and plans to be dc'd by then. Pt states has provided pt with a script for outpt therapy that he has at home in case he needs. He wants to see how today's appt goes with Dr. Higgins before using. Pt states no further concerns/needs. CM to follow. Advised pt to ask CM if any further question/concerns/needs arise, voices understanding. Pt Goal: Home Plan: Home, pain mgmt appt at 4:30pm today.
[2022-01-22 12:25] VITALS: BP 134/74; PULSE 95; RESP 16; TEMP 37; O2SAT 98
--- NOTE | 2022-01-22 15:19 | PCM.DC ---
Discharge Instructions Diet Discharge Diet: No restrictions Activity Discharge Activity: Return to Normal Activity Weight Bearing Status: Full weight bearing Follow Up Care Test Results: Test results from this visit will be discussed in further detail at your follow-up appointment, if applicable. Discharge Plan Admission Admit Date/Time: 01/22/22 00:42 Primary Reason for Your Visit: right upper leg pain Attending Provider: Charbel Patterson Primary Care Provider: Aniket Paulson Discharge Orders/Prescriptions Prescriptions: Continued gabapentin 300 mg capsule 300 mg PO TID RF: 0 naproxen sodium 220 mg capsule 220 mg PO BID PRN (Reason: Back Pain) RF: 0 sennosides [Vegetable Laxative] 8.6 mg tablet 8.6 mg PO DAILY RF: 0 cyclobenzaprine 10 mg tablet 10 mg PO TID RF: 0 Referrals / Follow Up: Balta Higgins MD [STAFF PHYSICIAN] - See Referral Note (today) Aniket Paulson MD [Primary Care Provider] - Kalpesh Hernández MD [STAFF PHYSICIAN] - See Referral Note (call for appointment) Disposition Disposition (needs filled in before D/C Order can be placed): Home, Self Care
--- NOTE | 2022-01-22 15:26 | DS.PCM_ITS ---
Providers Date of Admission: 01/22/22 Date of Discharge: 01/22/22 Primary Care Physician: Dr. Aniket Paulson MD Reason For Visit: INTRACTABLE PAIN RIGHT LOWER EXTREMITY Diagnosis Discharge Diagnosis (1) Neuropathic pain: Status: Acute Code(s): M79.2 - Neuralgia and neuritis, unspecified (2) Intractable pain: Status: Acute Code(s): R52 - Pain, unspecified (3) Quadriceps weakness: Status: Acute Code(s): M62.81 - Muscle weakness (generalized) Plan: 1. Right quadricep pain-uncontrolled, etiology unknown #2 history of Crohn's disease Medications at Discharge Home Medications cyclobenzaprine 10 mg PO TID 01/12/22 gabapentin 300 mg capsule 300 mg PO TID cap 01/21/22 naproxen sodium 220 mg capsule 220 mg PO BID PRN 01/21/22 sennosides 8.6 mg tablet 8.6 mg PO DAILY 01/21/22 Hospital Course Operations None Procedures None Summary of Care Provided Minutes Spent on Discharge: 31 Hospital Course: This 51-year-old white male was seen in the emergency room at [facility], he had developed pain in his right upper thigh and hip area for the last 2 weeks, as an outpatient he had seen orthopedic physicians and an orthopedic spine surgeon, a firm diagnosis had not been made as to the etiology of the pain. Patient saw custom motorcycle painter the day he was seen in the emergency room and had Kenalog and lidocaine injections. Patient had also recently seen a chiropractor as an outpatient without significant pain relief. Patient was given IV Dilaudid, Toradol, and Zofran with some relief but with movement he had recurrence of the right upper leg discomfort. Patient request admission for pain control, he was placed in observation status on MedSur 3 and received IV narcotics and muscle relaxants. On 01/22/2022, patient requested discharge in order for him to be seen for an outpatient appointment at pain management for an epidural injection. On 01/22/2022, patient was seen and examined: On examination he appeared in good health and spirits. Vital signs as documented. Skin warm and dry and without overt rashes. Neck without JVD, neck was supple, trachea midline, thyroid was normal. Lungs clear bilaterally, normal air movement was noted. Heart exam notable for regular rhythm, normal sounds and absence of murmurs, rubs or gallops. Abdomen unremarkable and without evidence of organomegaly, masses, or abdominal aortic enlargement. Bowel sounds are present, abdomen is not distended. Extremities nonedematous, no cyanosis was noted, no clubbing was noted. Neuro: Cranial nerves II through XII are grossly intact, no focal motor deficits were noted, sensation to light touch and pinprick intact, motor exam 5/5 throughout. Psych: Patient is alert and oriented x3, he does not appear anxious or depressed, he does not appear agitated. Patient appears stable for discharge on 01/22/2022. Weight / BMI Weight Weight: 92 kg Body Mass Index (BMI) 29.0 ABG / Lab / Microbiology Data Result Diagrams: 01/22/22 05:10 01/22/22 05:10 Laboratory: Laboratory Results - last 24 hr 01/22/22 05:10: WBC 10.9, RBC 4.92, Hgb 14.7, Hct 41.6, MCV 84.6, MCH 29.9, MCHC 35.3, RDW Std Deviation 39.3, RDW Coeff of Myles 12.8, Plt Count 319, MPV 10.0, Immature Gran % (Auto) 0.400, Neut % (Auto) 85.7 H, Lymph % (Auto) 8.4 L, Otero % (Auto) 5.3, Eos % (Auto) 0.1, Baso % (Auto) 0.1, Absolute Neuts (auto) 9.3 H, Absolute Lymphs (auto) 0.91, Nucleated RBC % 0 01/22/22 05:10: Sodium 136, Potassium 4.4, Chloride 104, Carbon Dioxide 24.0, Anion Gap 8, BUN 26 H, Creatinine 1.26, Estim Creat Clear Calc 70.01, Est GFR (MDRD) Af Amer 77, Est GFR (MDRD) Non-Af 64, BUN/Creatinine Ratio 20.6 H, Glucose 133 H, Calcium 9.0 D/C Instructions Discharge Diet: No restrictions Weight Bearing Status: Full weight bearing Meaningful Use Info Meaningful Use Diagnoses (Choose all that apply): None applicable Discharge Plan Admission Admit Date/Time: 01/22/22 00:42 Primary Reason for Your Visit: right upper leg pain Attending Provider: Charbel Patterson Primary Care Provider: Aniket Paulson Discharge Orders/Prescriptions Prescriptions: Continued gabapentin 300 mg capsule 300 mg PO TID RF: 0 naproxen sodium 220 mg capsule 220 mg PO BID PRN (Reason: Back Pain) RF: 0 sennosides [Vegetable Laxative] 8.6 mg tablet 8.6 mg PO DAILY RF: 0 cyclobenzaprine 10 mg tablet 10 mg PO TID RF: 0 Referrals / Follow Up: Balta Higgins MD [STAFF PHYSICIAN] - See Referral Note (today) Aniket Paulson MD [Primary Care Provider] - Kalpesh Hernández MD [STAFF PHYSICIAN] - See Referral Note (call for appointment) Disposition Disposition (needs filled in before D/C Order can be placed): Home, Self Care Charges/Coding Visit Charges OBSV E&M: 84605 Observation care discharge
[2022-01-22 15:33] VITALS: BP 132/86; PULSE 91; RESP 18; TEMP 37; O2SAT 97
== END 2022-01-22 15:50 | disposition home or self-care (01) ==
LOC: ED 01-22 00:20 → MS3 01-22 00:52
PROVIDERS: Admitting Provider Family Medicine; Emergency Provider Emergency Medicine; PCP Family Medicine; Visit Provider Internal Medicine
DX: M51.36 Other intervertebral disc degeneration, lumbar region (principal); K50.90 Crohn's disease, unspecified, without complications; M25.551 Pain in right hip; R11.0 Nausea; M62.81 Muscle weakness (generalized); G62.9 Polyneuropathy, unspecified; M62.838 Other muscle spasm; Z79.899 Other long term (current) drug therapy
CPT/HCPCS: 36415; 80048; 85025; 96374; 96375; 96376; 99218; 99284; A4216; G0378; J2405

== ENCOUNTER → 2022-05-21 | Outpatient (CLI) | payer OTHER, SELFPAY ==
[2022-05-21 10:16] LABS: Erythrocyte Sedimentation Rate 50 mm/hr (0-20)
[2022-05-21 10:18] LABS: Hematocrit 39.4 % (40-54); Hemoglobin 13.3 g/dL (13.0-16.5); Mean Corp Hgb Conc 33.8 g/dL (32-36); Mean Corpuscular Hgb 30.1 pg (27.0-32.0); Mean Corpuscular Volume 89.1 fL (80-94); Mean Platelet Vol. 9.9 fl (6.2-12.0); Platelet Count 285 K/mm3 (150-450); RBC Distribution Width CV 12.7 % (11.6-14.6); RBC Distribution Width SD 41.6 fl (35.1-43.9); Red Blood Count 4.42 M/mm3 (4.6-6.2); White Blood Count 7.2 K/mm3 (4.4-11.0)
[2022-05-21 10:32] LABS: Vitamin B12 799 pg/mL (211-911)
[2022-05-21 10:44] LABS: Anion Gap 7 (5-15); BUN 16 mg/dL (7-18); Calcium,Total 9.1 mg/dL (8.5-10.1); Chloride 104 mmol/L (98-107); Creatinine, Serum 1.07 mg/dL (0.70-1.30); EST Glomerular Filtration Rate 77 mL/min (>60); Est Glom Filt Rate - Afr Amer 93 mL/min (>60); Glucose 98 mg/dL (74-106); Potassium 4.2 mmol/L (3.5-5.1); Sodium Level 139 mmol/L (136-145); Thyroid Stim Hormone (TSH) 2.26 uIU/mL (0.358-3.74)
[2022-05-23 16:01] LABS: ANTINUCLEAR ANTIBODIES DIRECT Negative (Negative); Vitamin D 1,25-Dihydroxy 40.9 pg/mL (24.8-81.5)
[2022-05-31 12:06] LABS: Vitamin B1, Thiamine 210.7 nmol/L (66.5-200.0)
== END | disposition home or self-care (01) ==
LOC: MTLAB 07:18
PROVIDERS: PCP Family Medicine; Referring Provider Psychiatry & Neurology Neurology; Visit Provider Psychiatry & Neurology Neurology
DX: M54.16 Radiculopathy, lumbar region (principal); E55.9 Vitamin D deficiency, unspecified
CPT/HCPCS: 36415; 80048; 82607; 82652; 82746; 84425; 84443; 85027; 85652; 86038; 86225; 86235

== ENCOUNTER → 2023-01-30 | Outpatient (CLI) | payer OTHER, SELFPAY ==
--- NOTE | 2023-01-30 13:32 | RAD_ITS ---
INDICATION: COUGH EXAMINATION/TECHNIQUE: X-RAY - XR Chest 2 Views COMPARISON: None. FINDINGS: LINES/DEVICES: None. LUNGS: No consolidation, edema or effusion. No pneumothorax. MEDIASTINUM AND CARDIOVASCULAR STRUCTURES: Cardiac silhouette not enlarged. Central airways and mediastinal contour are unremarkable. BONES AND SOFT TISSUES: Unremarkable. RAD/Chest PA and Lateral IMPRESSION: No radiographic evidence of acute cardiopulmonary disease. Electronically Signed: Jakob Crump MD at 15:51 EST ,
== END | disposition home or self-care (01) ==
LOC: MTRAD 13:29
PROVIDERS: PCP Family Medicine; Referring Provider Family Medicine; Visit Provider Family Medicine
DX: R05.9 Cough, unspecified (principal)
CPT/HCPCS: 71046

== ENCOUNTER 2023-12-05 08:18 | Observation (INO) | payer BC, SELFPAY ==
[2023-12-05] VITALS (9 sets, daily range): BP systolic 105–140; BP diastolic 68–83; PULSE 75–89; RESP 12–112; TEMP 36.6–37; O2SAT 93–98; BMI 31.7; BMI 31.1
[2023-12-05] MEDS: 0.9% Normal Saline (1000mL) 1,000 ML 1000 ML IV (08:30)
--- NOTE | 2023-12-05 08:31 | CT_ITS ---
STUDY: CT BRAIN WITHOUT CONTRAST REASON FOR EXAM: Male, 52 years old. Head injury due to syncopal episode. Laceration overlying the right orbit. RADIATION DOSAGE (If Supplied By Facility): CTDIvol = ( 44.99 ) mGy, DLP = ( 796.11 ) mGycm TECHNIQUE: Transaxial CT imaging of the brain was performed without administration of intravenous contrast material. Individualized dose optimization techniques were used for this CT. COMPARISON: No relevant priors. FINDINGS: Normal soft tissue structures. Normal calvarium. Normal size ventricles and extra-axial spaces for the patient''s age. Normal white matter tracts of the cerebral hemispheres. Normal basal ganglia and thalami. Normal brainstem. Normal cerebellum. There is no intracranial hemorrhage. There are no findings of an acute ischemic infarction. Mild mucosal thickening of the ethmoid sinuses bilaterally. CT/Brain/Head without Contrast IMPRESSION: Normal unenhanced CT scan of the brain. Mucosal thickening of the ethmoid sinuses bilaterally. Electronically Signed: Diogo Barbosa MD at 9:02 EST ,
--- NOTE | 2023-12-05 08:31 | EKG12_ITS ---
Test Reason : Blood Pressure : / mmHG Vent. Rate : 081 BPM Atrial Rate : 081 BPM P-R Int : 182 ms QRS Dur : 088 ms QT Int : 376 ms P-R-T Axes : 052 046 030 degrees QTc Int : 436 ms Normal sinus rhythm Normal ECG Confirmed by HEMALATHA JUSTIN, EFREN ([id number]), scientific editor TERRANCE FERNANDEZ ([id number]) on 12/08/2023 6:35:09 AM Referred By: Confirmed By:EFREN PENNY MD
--- NOTE | 2023-12-05 08:31 | CT_ITS ---
STUDY: CT FACIAL BONES WITHOUT CONTRAST REASON FOR EXAM: Male, 52 years old. Follow due to a syncopal episode. Laceration overlying the right orbital region. RADIATION DOSAGE (If Supplied By Facility): CTDIvol = ( 29.38 ) mGy, DLP = ( 613.57 ) mGycm TECHNIQUE: The patient was scanned in a multi detector CT scanner. Sagittal and coronal images were reconstructed. Individualized dose optimization techniques were used for this CT. COMPARISON: None. FINDINGS: Normal soft tissue structures. Normal orbital polanco and orbital contents. Normal nasal bones and anterior nasal spine. Normal facial bones. There is no demonstrated fracture. Minimal mucosal thickening along the anterior wall of the right maxillary sinus. Partial opacification of the ethmoid sinuses bilaterally. CT/Sinus/Facial Bone IMPRESSION: Normal unenhanced CT of the facial bones. Mucosal thickening along the anterolateral right maxillary sinus and partial opacification of the ethmoid sinuses bilaterally. Electronically Signed: Diogo Barbosa MD at 9:04 EST ,
--- NOTE | 2023-12-05 08:34 | EDS_ITS ---
HPI History of Present Illness Chief Complaint: Syncope Informant: patient Narrative Narrative: Patient presents via EMS after 2 syncopal episodes at home. He states last night as he was going to bed he felt like he might have food poisoning. He got up around 2 AM to go to the bathroom to either vomit or have diarrhea. On the way to the bathroom he had a syncopal episode and fell to the floor suffering a laceration to his right forehead. His put Steri-Strips on it. He was able to finish in the bathroom and go back to bed. He got up around 530 or 6 AM, again with symptoms of needing to vomit and have diarrhea. Going to the bathroom had a syncopal episode and fell to the floor. He struck his face against a door. [facility] Medical History Crohn's disease Neuropathy Home Medications cetirizine 10 mg capsule (Zyrtec) 10 mg PO DAILY PRN allergy symptoms 04/16/22 [History Last Taken Unknown] diclofenac sodium 75 mg tablet,delayed release 75 mg PO BID #60 tabs 04/16/22 [Rx Last Taken Unknown] multivitamin with minerals (Multiple Vitamin-Minerals tablet) 1 tab PO DAILY 04/16/22 [History Last Taken Unknown] omega-3 fatty acids 1,000 mg capsule 1,000 mg PO DAILY 04/16/22 [History Last Taken Unknown] Allergy/AdvReac Type Severity Reaction Status Date / Time mercaptopurine Allergy Intermediate fever Verified 12/05/23 08:23 Family History Grandfather Cancer Mother Hypertension Arthritis Autoimmune disorder Osteoporosis Surgical History No history of previous surgery Social History household members: spouse and children housing: house number of children: 4 current occupational status: employed current occupation: optomitrist leisure activities: exercise Smoking Status: Never smoker alcohol intake: current alcohol intake frequency: holidays/special occasions only Alcohol type: wine substance use type: does not use well-balanced diet: daily or most days what type of physical activity do you participate in: bicycling and other details: crossfit frequency: 3-4 times per week ROS ROS ED Constitutional Constitutional ED: Denies chills or fever(s) Eyes Eyes: Denies discharge from eye(s) ENT ENT ED: Denies discharge from eye(s), rhinorrhea or sore throat Cardiovascular Cardiovascular: Denies chest pain or palpitations Respiratory/Chest Respiratory/Chest: Denies cough or dyspnea Gastrointestinal Gastrointestinal: Reports diarrhea, nausea and vomiting; Denies abdominal pain Genitourinary Genitourinary ED: Denies dysuria Musculoskeletal Musculoskeletal: Denies back pain or extremity pain Integumentary Denies Abrasions or rash Neurologic Neurologic: Reports weakness; Denies headache(s) Psychiatric Psychiatric: Denies anxiety or depression Allergic/Immunologic Allergic/Immunologic ED: Denies lip swelling or urticaria EXAM Physical Exam Const Vital Signs: 12/05/23 08:19 12/05/23 08:25 12/05/23 11:00 Temperature 97.8 F Temperature Source Temporal Pulse Rate 87 75 Pulse Rate [Lying] Pulse Rate [Sitting (for 1 minute prior to obtaining)] Pulse Rate [Standing (for 1 minute prior to obtaining)] Respiratory Rate 16 15 Respiratory Effort Normal Non-Labored Respiratory Pattern Normal Blood Pressure 140/75 H 127/72 H Blood Pressure [Lying] Blood Pressure [Sitting (for 1 minute prior to obtaining)] Blood Pressure [Standing (for 1 minute prior to obtaining)] Blood Pressure Mean 96 90 Blood Pressure Mean [Lying] Blood Pressure Mean [Sitting (for 1 minute prior to obtaining)] Blood Pressure Mean [Standing (for 1 minute prior to obtaining)] Pulse Ox 98 95 Oxygen Delivery Method Room Air Room Air 12/05/23 12:00 Temperature Temperature Source Pulse Rate Pulse Rate [Lying] 79 Pulse Rate [Sitting (for 1 minute prior to obtaining)] 88 Pulse Rate [Standing (for 1 minute prior to obtaining)] 80 Respiratory Rate Respiratory Effort Respiratory Pattern Blood Pressure Blood Pressure [Lying] 117/76 Blood Pressure [Sitting (for 1 minute prior to obtaining)] 123/79 H Blood Pressure [Standing (for 1 minute prior to obtaining)] 105/71 Blood Pressure Mean Blood Pressure Mean [Lying] 89 Blood Pressure Mean [Sitting (for 1 minute prior to obtaining)] 93 Blood Pressure Mean [Standing (for 1 minute prior to obtaining)] 82 Pulse Ox Oxygen Delivery Method Positive well nourished and well developed General Appearance ED: well developed HEENT HEENT Narrative: 2 cm laceration to the right forehead. Wound is currently closed after having Steri-Strips applied overnight. No active bleeding. Eyes EOMs intact bilaterally Chest Wall inspection of chest normal and palpation of chest normal Resp normal respiratory effort and clear to auscultation bilaterally Cardio regular rate and regular rhythm GI non-tender Auscultation: hypoactive bowel sounds Extremity Extremity Narrative: Mild bruising over the left anterior knee. No significant edema and full range of motion. Mild tenderness of the top of the left foot with no abrasions or ec chymosis. Strong pulses. Neuro oriented x3 and no sensory deficits noted Motor Exam: strength 5/5 throughout Psych mental status grossly normal MDM MDM MDM Narrative Medical decision making narrative: IV line established. Patient given IV fluid bolus. EKG obtained to evaluate for cardiac arrhythmia/ischemia. Labwork obtained to evaluate for leukocytosis, anemia, and electrolyte derangement. CT scan of the head and facial bones obtained to evaluate for fracture, bleed, edema. History & Record Review Discussion w/independent historian: Patient Lab Data Attestation: I reviewed the patient's lab results. Labs: Laboratory Results - last 24 hr 12/05/23 08:08 WBC 11.6 H RBC 4.87 Hgb 14.2 Hct 42.9 MCV 88.1 MCH 29.2 MCHC 33.1 RDW Std Deviation 43.1 RDW Coeff of Myles 13.2 Plt Count 303 MPV 9.8 Immature Gran % (Auto) 0.300 Neut % (Auto) 92.2 H Lymph % (Auto) 2.8 L [place] % (Auto) 4.1 Eos % (Auto) 0.3 Baso % (Auto) 0.3 Absolute Neuts (auto) 10.7 H Absolute Lymphs (auto) 0.33 L Nucleated RBC % 0 Differential Comment SCANNED Sodium 140 Potassium 4.0 Chloride 106 Carbon Dioxide 27.0 Anion Gap 7 BUN 23 H Creatinine 1.38 H Estim Creat Clear Calc 72.68 Est GFR (MDRD) Af Amer 69 Est GFR (MDRD) Non-Af 57 L BUN/Creatinine Ratio 16.7 Glucose 134 H Calcium 9.2 Radiography Diagnostic Testing: Clinical Impression(s) from Imaging Studies Brain CT 12/05/23 08:31 IMPRESSION: Normal unenhanced CT scan of the brain. Mucosal thickening of the ethmoid sinuses bilaterally. Electronically Signed: Diogo Barbosa MD at 9:02 EST , Facial/Sinus 12/05/23 08:31 IMPRESSION: Normal unenhanced CT of the facial bones. Mucosal thickening along the anterolateral right maxillary sinus and partial opacification of the ethmoid sinuses bilaterally. Electronically Signed: Diogo Barbosa MD at 9:04 EST , EKG Initial EKG: Attestation: I personally reviewed and interpreted this EKG as follows: Interpretation: Sinus Rhythm (Sinus 81 with no acute ischemia.) Treatment and Re-Evaluation :: CBC reveals white blood cell count elevated 11.6 with 92% neutrophils. Hemoglobin is 14.2. Chemistry studies reveal a BUN of 23 and a creatinine 1.38. Baseline creatinine appears to be right around 1. Glucose is elevated at 134. EKG is sinus rhythm with no acute ischemia. CT scan of the head reveals mucosal thickening of the ethmoid sinuses but no acute findings in the brain. CT of the facial bones reveal no fracture. Right forehead wound is cleansed. It is sealed with Dermabond. After receiving a full liter of IV fluids patient had orthostatic vital signs attempted. When standing he became too dizzy and had to sit down. He has been in the emergency room for 4 hours and is continuing to be symptomatic with ambulation. I will speak with hospitalist regarding admission for further hydration. Discharge Plan Triage Chief Complaint: Syncope ED Provider: Duyen Ramos Dx/Rx/DC Orders Clinical Impression: Vasovagal syncope Prescriptions: No Action Multiple Vitamin-Minerals Tablet 1 tab PO DAILY Zyrtec 10 mg capsule 10 mg PO DAILY PRN (Reason: allergy symptoms) omega-3 fatty acids 1,000 mg capsule 1,000 mg PO DAILY diclofenac sodium 75 mg tablet,delayed release (DR/EC) 75 mg PO BID Qty: 60 1RF Primary Care Provider: Aniket Paulson Referrals: Aniket Paulson MD [Primary Care Provider] - Disposition Disposition: Acute Care Hospital [facility]
[2023-12-05 08:46] LABS: Absolute Lymphocyte Count 0.33 X10^3/uL (0.83-4.51); Absolute Neutrophil Count 10.7 X10^3/uL (2.0-7.7); Basophil# 0.03 X10^3/uL; Basophil% 0.3 % (0-1); Eosinophil# 0.03 X10^3/uL; Eosinophils% 0.3 % (0-5); Hematocrit 42.9 % (40-54); Hemoglobin 14.2 g/dL (13.0-16.5); Lymphocyte # 0.33 X10^3/ul (0.83-4.51); Lymphocyte % 2.8 % (19-41); Mean Corp Hgb Conc 33.1 g/dL (32-36); Mean Corpuscular Hgb 29.2 pg (27.0-32.0); Mean Corpuscular Volume 88.1 fL (80-94); Mean Platelet Vol. 9.8 fl (6.2-12.0); Monocyte# 0.47 X10^3/uL; Monocyte% 4.1 % (0-10); NRBC Flagged by Analyzer 0 % (0-5); Neutrophil # 10.68 X10^3/uL (2.7-7.7); Neutrophil % 92.2 % (47-70); POSITIVE DIFFERENTIAL YES; Platelet Count 303 K/mm3 (150-450); RBC Distribution Width CV 13.2 % (11.6-14.6); RBC Distribution Width SD 43.1 fl (35.1-43.9); Red Blood Count 4.87 M/mm3 (4.6-6.2); White Blood Count 11.6 K/mm3 (4.4-11.0)
[2023-12-05 08:49] LABS: Differential Indicated SCAN CRITERIA MET
[2023-12-05 08:54] LABS: Anion Gap 7 (5-15); BUN 23 mg/dL (7-18); BUN/Creat Ratio 16.7 RATIO (10-20); Calcium,Total 9.2 mg/dL (8.5-10.1); Chloride 106 mmol/L (98-107); Creatinine, Serum 1.38 mg/dL (0.70-1.30); EST Glomerular Filtration Rate 57 mL/min (>60); Est Glom Filt Rate - Afr Amer 69 mL/min (>60); Estimated Creatinine Clearance 72.68 ml/min; Glucose 134 mg/dL (74-106); Sodium Level 140 mmol/L (136-145)
[2023-12-05 09:14] LABS: Differential Comment SCANNED
--- OUTSIDE RECORDS SUMMARY | 2023-12-05 09:27 | XMS RPT_ITS | CCD ---
Author Name Unknown Address [address] [place] [address] Run [facility] [address] [place] [id number] Organization [facility] Care Team Providers Care Bad Cloth Checker Name Role Phone FERNANDO JUSTIN, DR SETHI Primary Care Physician Allergies Allergy Classification Reported Allergen(s) Allergy Type Date of Onset Reaction(s) Facility (1 source) mercaptopurine; Translations: [mercaptopurine] Drug Allergy Unknown (qualifier value) [facility] Work Phone: Medications Current Medications Medication Drug Class(es) Dates Sig (Normalized) Sig (Original) gabapentin 300 mg oral capsule (1 source) Anti-epileptic Agent Start: 03-07-2022 gabapentin 300 mg oral capsule 0 Refill(s) Start Date: 03/07/22 Status: Ordered Problems Problem Classification Problem Date Documented Da te Episodic/Chronic Spondylosis; intervertebral disc disorders; other back problems (1 source) Stenosis of lateral recess of lumbar spine 03-07-2022 Episodic Encounters Encounter Date Encounter Type Care Provider Facility Start: 03-07-2022 End: 03-07-[address] STEVE NUNEZ MD [facility] Social History Date Type Detail Facility Start: 03-07-2022 Tobacco smoking status Never s moked tobacco (finding) [facility] Sex Assigned At Sex [facility] Evaluation + Plan note Note Date & Type Note Facility Evaluation + Plan note No data available for this section [facility] Hospital Discharge instructions Note Date & Type Note Facility Hospital Discharge instructions No data available for this section [facility] Progress note Note Date & Type Note Facility Progress note No data available for this section [facility] Additional Source Comments Care Team (unrecognized sect ion and content) Personnel Name: JOSSIE KING MD Address: [address] FOR RECORDS PERTAINING TO PATIENTS WHO ARE OR HAVE BEEN ENROLLED IN A CHEMICAL DEPENDENCY/SUBSTANCEABUSE PROGRAM, SOME INFORMATION MAY BE OMITTED. This clinical summary was aggregated from multiple sources. Caution should be exercised in using it in the provision of clinical care. This summary normalizes information from multiple sources, and as a consequence, information in this document may materially change the coding, format and clinical context of patient data. In addition, data may be omitted in some cases. CLINICAL DECISIONS SHOULD BE BASED ON THE PRIMARY CLINICAL RECORDS. [employer] [facility]. provides no warranty or guarantee of the accuracy or completeness of information in this document.
[2023-12-05] MEDS: 0.9% Normal Saline (1000mL) 1,000 ML 150 ML IV (12:29)
--- NOTE | 2023-12-05 12:36 | HP.PCM.HOS_ITS ---
HPI - General General Date of Admission: 12/05/23 Date of Service: 12/05/23 Chief Complaint: Has large volume liquid bowel movement x 2. Passed out 2 times. HPI Narrative DENISSE ACKERMAN, is a 52 M with was brought by EMS after he was found passed out on the floor. History taken from the patient and his near the bedside. Patient stated last night he had large-volume liquid bowel movement after he felt like a food poisoning. He also had generalized abdominal cramps about 5- 05/16 lasted for 1 hour. He felt burping and then he passed out on the toilet seat. After that he went to bed and then woke up he did not feel good. He went to restroom had large bowel movement. He tried to get up but passed out and hit his right side of forehead on towel rack. He has a small laceration wound over right eyebrow. Patient does not remember well but he recovered short time. Patient denies any Cardiac or pulmonary disease. Has history of Crohn's disease in the past but he said he recovered on Remicade. He is he did not had to take Remicade for 10 years as recovered and did not have any symptoms of Crohn's disease. Vitals by EMS reviewed heart rate 81. Blood pressure 148/93.In ED, orthostatic shows drop in blood pressure from sitting 123/79-105/71 on standing. He did not had reflex tachycardia. Did look dehydrated therefore admitted on for IV fluid resuscitation. [facility] Medical History Crohn's disease Neuropathy Home Medications cetirizine 10 mg capsule (Zyrtec) 10 mg PO DAILY PRN allergy symptoms 04/16/22 [History Last Taken 12/04/23] diclofenac sodium 75 mg tablet,delayed release 75 mg PO BID pain #60 tabs 04/16/22 [Rx Last Taken 12/04/23] multivitamin with minerals (Multiple Vitamin-Minerals tablet) 1 tab PO DAILY vitamin 04/16/22 [History Last Taken 12/04/23] omega-3 fatty acids 1,000 mg capsule 1,000 mg PO DAILY supplement 04/16/22 [History Last Taken 12/04/23] Allergy/AdvReac Type Severity Reaction Status Date / Time mercaptopurine Allergy Intermediate fever Verified 12/05/23 08:23 Family History Grandfather Cancer Mother Hypertension Arthritis Autoimmune disorder Osteoporosis Surgical History No history of previous surgery Social History household members: spouse and children housing: house number of children: 4 current occupational status: employed current occupation: optomitrist leisure activities: exercise Smoking Status: Never smoker alcohol intake: current alcohol intake frequency: holidays/special occasions only Alcohol type: wine substance use type: does not use well-balanced diet: daily or most days what type of physical activity do you participate in: bicycling and other details: crossfit frequency: 3-4 times per week ROS ROS Narrative Constitutional: Reports mild fatigue, weakness and passing out. No fever. No acute URI symptoms HEENT: Reports systems reviewed and no addt'l complaints, except as documented Respiratory/Chest: No acute shortness of breath or respiratory distress or wheezing. CVS: Denies chest pain or arrhythmia or history of CAD Gastrointestinal: No vomiting. No GI bleed.Mild nausea. Rest as described In HPI. Genitourinary: Denies burning urination or new urinary tract symptoms Musculoskeletal: Denies acute joint pain or limited range of motion. No acute injury Neurologic: Denies seizure-like symptoms. skin: Lacerated wound Endocrinology: Reports systems reviewed and no addt'l complaints, except as documented Hematologic/Lymphatic: Reports systems reviewed and no addt'l complaints, except as documented Rest 14 ROS are negative except as mentioned in HPI Vital Signs Vital Signs Vital Signs: 12/05/23 08:19 12/05/23 08:25 12/05/23 11:00 Temperature 97.8 F Temperature Source Temporal Pulse Rate 87 75 Pulse Rate [Lying] Pulse Rate [Sitting (for 1 minute prior to obtaining)] Pulse Rate [Standing (for 1 minute prior to obtaining)] Respiratory Rate 16 15 Respiratory Effort Normal Non-Labored Respiratory Pattern Normal Blood Pressure 140/75 H 127/72 H Blood Pressure [Lying] Blood Pressure [Sitting (for 1 minute prior to obtaining)] Blood Pressure [Standing (for 1 minute prior to obtaining)] Blood Pressure Mean 96 90 Blood Pressure Mean [Lying] Blood Pressure Mean [Sitting (for 1 minute prior to obtaining)] Blood Pressure Mean [Standing (for 1 minute prior to obtaining)] Pulse Ox 98 95 Oxygen Delivery Method Room Air Room Air 12/05/23 12:00 Temperature Temperature Source Pulse Rate Pulse Rate [Lying] 79 Pulse Rate [Sitting (for 1 minute prior to obtaining)] 88 Pulse Rate [Standing (for 1 minute prior to obtaining)] 80 Respiratory Rate Respiratory Effort Respiratory Pattern Blood Pressure Blood Pressure [Lying] 117/76 Blood Pressure [Sitting (for 1 minute prior to obtaining)] 123/79 H Blood Pressure [Standing (for 1 minute prior to obtaining)] 105/71 Blood Pressure Mean Blood Pressure Mean [Lying] 89 Blood Pressure Mean [Sitting (for 1 minute prior to obtaining)] 93 Blood Pressure Mean [Standing (for 1 minute prior to obtaining)] 82 Pulse Ox Oxygen Delivery Method Weight Weight: 221 lb 6.4 oz Body Mass Index (BMI) 31.7 Physical Exam Narrative General: Alert, Oriented x3, Cooperative HEENT: Atraumatic, PERRLA, EOMI, Normocephalic Oral: Oral mucosa dry. No Gingival or Mucosal Lesions/ Ulcerations Neck: Supple, No JVD, Negative Carotid Bruits Lungs: Air entry diminished in bilateral lung bases. No crepitation/rhonchi Cardiovascular: Regular rate, Regular Rhythm, Normal S1, Normal S2, No murmurs Abdomen: Bowel Sounds Present, Soft, Non Tender, Non-Distended : No renal angle tenderness. No suprapubic tenderness. Extremities: No edema, Capillary Refill Less than 3 Seconds Skin: Small lacerated wound above right eyebrow which was cleaned and sealed with Dermabond. Musculoskeletal: No Tenderness to Palpation of Joints or Extremities. Muscle strength 5/5 at major knee and hip joints Neurological: Cranial nerves II-XII grossly intact, DTR 2+/4. No acute focal n eurological deficit. Psych/Mental Status: Normal Affect, Appropriate. Results Lab / Micro Data 12/05/23 08:08 12/05/23 08:08 Labs: Laboratory Results - last 24 hr 12/05/23 08:08: WBC 11.6 H, RBC 4.87, Hgb 14.2, Hct 42.9, MCV 88.1, MCH 29.2, MCHC 33.1, RDW Std Deviation 43.1, RDW Coeff of Myles 13.2, Plt Count 303, MPV 9.8, Immature Gran % (Auto) 0.300, Neut % (Auto) 92.2 H, Lymph % (Auto) 2.8 L, [place] % (Auto) 4.1, Eos % (Auto) 0.3, Baso % (Auto) 0.3, Absolute Neuts (auto) 10.7 H, Absolute Lymphs (auto) 0.33 L, Nucleated RBC % 0, Differential Comment SCANNED, Sodium 140, Potassium 4.0, Chloride 106, Carbon Dioxide 27.0, Anion Gap 7, BUN 23 H, Creatinine 1.38 H, Estim Creat Clear Calc 72.68, Est GFR (MDRD) Af Amer 69, Est GFR (MDRD) Non-Af 57 L, BUN/Creatinine Ratio 16.7, Glucose 134 H, Calcium 9.2 Imagaing Rad[address] Imp[address] Brain CT 12/05/23 08:31 IMPRESSION: Normal unenhanced CT scan of the brain. Mucosal thickening of the ethmoid sinuses bilaterally. Electronically Signed: Diogo Barbosa MD at 9:02 EST , Facial/Sinus 12/05/23 08:31 IMPRESSION: Normal unenhanced CT of the facial bones. Mucosal thickening along the anterolateral right maxillary sinus and partial opacification of the ethmoid sinuses bilaterally. Electronically Signed: Diogo Barbosa MD at 9:04 EST , Assessment & Plan Assessment/Plan (1) Vasovagal syncope: PLAN: Plan This is 52-year-old gentleman being admitted for syncope resulting into fall 1. Syncope most likely vasovagal syncope with fall and small lacerated wound over right forehead/eyebrow: The wound was taken care in ED. No active bleed ing. Patient is admitted in PCU as an observation. IV fluid Ringer lactate ordered for rehydration. monitor worker shows normal sinus rhythm. Twelve- lead EKG in ED shows normal sinus rhythm 81 beats per. QTc normal 436 ms. Orthostatic vitals tomorrow morning. Plan of management discussed with patient's , nurse and patient near the bedside. 2. Possible food poisoning with diarrhea resulting into dehydration: Patient had 2 large bowel movements. It seems diarrhea is stopped and recovered. Abdominal exam findings are benign with no tenderness. Regular diet. Will follow-up. 3. RADHA with severe hypophosphatemia: Patient baseline BUNs/creatinine is normal 16/1.07. Admitted with 23/1.38 consistent with RADHA. Phosphorus 0.8 severe hypophosphatemia. Serum magnesium level 2.3 normal. IV potassium phosphate replacement ordered. 4. Past history of Crohn's disease, recovered: No acute issues over last 10 years. Living will/advanced directive/end of life care: Patient does have living will or advanced directive. His who is RN is power of estate attorney for health. After discussion of benefits/risks procedures involved with full code, DNR CC arrest and DNR CC, the patient opted for full code. Patient does want artificial life support including intubation, tube feed, ventilator and/chest compression, central venous catheter, vasopressor and DC shock if needed Total time spent in [id number] encounter in discussion of advanced directive 17 minutes. Laboratory Results 12/05/23 08:08: WBC 11.6 H, RBC 4.87, Hgb 14.2, Hct 42.9, MCV 88.1, MCH 29.2, MCHC 33.1, RDW Std Deviation 43.1, RDW Coeff of Myles 13.2, Plt Count 303, MPV 9.8, Immature Gran % (Auto) 0.300, Neut % (Auto) 92.2 H, Lymph % (Auto) 2.8 L, [place] % (Auto) 4.1, Eos % (Auto) 0.3, Baso % (Auto) 0.3, Absolute Neuts (auto) 10.7 H, Absolute Lymphs (auto) 0.33 L, Nucleated RBC % 0, Differential Comment SCANNED, Sodium 140, Potassium 4.0, Chloride 106, Carbon Dioxide 27.0, Anion Gap 7, BUN 23 H, Creatinine 1.38 H, Estim Creat Clear Calc 72.68, Est GFR (MDRD) Af Amer 69, Est GFR (MDRD) Non-Af 57 L, BUN/Creatinine Ratio 16.7, Glucose 134 H, Calcium 9.2, Phosphorus 0.8 L*, Magnesium 2.3 Charges/Coding Visit Charges Inpatient E&M: 47948 Init Hosp L3 Procedures Hospitalists Procedures: 88685 Advncd Care Plan 30 Min
[2023-12-05 13:26] LABS: Magnesium 2.3 mg/dL (1.6-2.6); Phosphorus 0.8 mg/dL (2.5-4.9)
--- OUTSIDE RECORDS SUMMARY | 2023-12-05 13:38 | XMS RPT_ITS | CCD ---
Author Name Unknown Address [address] [place] [address] [facility] [address] [place] [id number] Organization [facility] Care Team Providers Care Surgical Product Sales Consultant Name Role Phone FERNANDO JUSTIN, DR SETHI Primary Care Physician Allergies Allergy Classification Reported Allergen(s) Allergy Type Date of Onset Reaction(s) Facility (1 source) mercaptopurine; Translations: [mercaptopurine] Drug Allergy Unknown (qualifier value) [facility] Work Phone: Medications Current Medications Medication [...] Patient encounter procedure DR STEVE NUNEZ MD [facility] Social History Date Type Detail Facility Start: 03-07-2022 Tobacco smoking status Never s moked tobacco (finding) [facility] Sex Assigned At Sex [facility] Evaluation + Plan note Note Date & Type Note Facility Evaluation + Plan note No data available for this section [facility] Hospital Discharge instructions Note Date & Type Note Facility Hospital Discharge instructions No data available for this section [facility] Progress note Note Date & Type Note Facility Progress note No data available for this section [facility] Additional Source Comments Care Team (unrecognized sect ion and content) Personnel Name: JOSSIE KING MD Address: [address] FOR RECORDS PERTAINING TO PATIENTS WHO [...] BE BASED ON THE PRIMARY CLINICAL RECORDS. [employer] [facility]. provides no warranty or guarantee of the accuracy or completeness of information in this document.
[2023-12-05] MEDS: Lactated Ringers 1,000 ML 100 ML IV (16:01)
[2023-12-05] MEDS: Acetaminophen 325 MG Tablet 650 MG PO ×2 (16:09→22:15)
[2023-12-05] MEDS: Enoxaparin 40 MG/0.4 ML Syringe SC (16:49)
[2023-12-05] MEDS: Pantoprazole Sodium 40 MG Tablet PO (16:49)
[2023-12-05] MEDS: Ondansetron 4 MG/2 ML Vial IV (17:01)
[2023-12-05] MEDS: Potassium Phosphate 21 MM in 0.9% Normal Saline (250mL Bag) 250 ML 84 MM IV (17:02)
[2023-12-05] MEDS: 0.9% Saline Lock 10 ML Syringe IV (17:02)
[2023-12-06] MEDS: Lactated Ringers 1,000 ML 100 ML IV ×2 (01:34→11:33)
[2023-12-06 03:20] VITALS: BP 122/68; PULSE 70; RESP 16; TEMP 37.1; O2SAT 96
[2023-12-06 06:00] VITALS: BMI 31.3
[2023-12-06 06:40] LABS: Absolute Lymphocyte Count 0.99 X10^3/uL (0.83-4.51); Absolute Neutrophil Count 4.2 X10^3/uL (2.0-7.7); Basophil# 0.02 X10^3/uL; Basophil% 0.3 % (0-1); Eosinophil# 0.22 X10^3/uL; Eosinophils% 3.6 % (0-5); Hematocrit 37.2 % (40-54); Hemoglobin 11.9 g/dL (13.0-16.5); Lymphocyte # 0.99 X10^3/ul (0.83-4.51); Lymphocyte % 16.3 % (19-41); Mean Corpuscular Hgb 28.7 pg (27.0-32.0); Mean Corpuscular Volume 89.6 fL (80-94); Mean Platelet Vol. 9.8 fl (6.2-12.0); Monocyte# 0.63 X10^3/uL; Monocyte% 10.4 % (0-10); NRBC Flagged by Analyzer 0 % (0-5); Neutrophil % 69.2 % (47-70); Platelet Count 206 K/mm3 (150-450); RBC Distribution Width CV 13.6 % (11.6-14.6); RBC Distribution Width SD 44.6 fl (35.1-43.9); Red Blood Count 4.15 M/mm3 (4.6-6.2); White Blood Count 6.1 K/mm3 (4.4-11.0)
[2023-12-06] MEDS: Ondansetron 4 MG/2 ML Vial IV (06:55)
[2023-12-06] MEDS: 0.9% Saline Lock 10 ML Syringe IV (06:55)
[2023-12-06 08:01] VITALS: O2SAT 95
[2023-12-06 08:52] LABS: Anion Gap 7 (5-15); BUN 13 mg/dL (7-18); BUN/Creat Ratio 13.1 RATIO (10-20); Calcium,Total 7.8 mg/dL (8.5-10.1); Chloride 111 mmol/L (98-107); Creatinine, Serum 0.99 mg/dL (0.70-1.30); EST Glomerular Filtration Rate 83 mL/min (>60); Est Glom Filt Rate - Afr Amer 101 mL/min (>60); Estimated Creatinine Clearance 100.67 ml/min; Glucose 100 mg/dL (74-106); Potassium 3.8 mmol/L (3.5-5.1); Sodium Level 139 mmol/L (136-145)
[2023-12-06 09:02] VITALS: BP 120/75; PULSE 70; RESP 14; TEMP 36.4; O2SAT 98
[2023-12-06] MEDS: Pantoprazole Sodium 40 MG Tablet PO (09:06)
[2023-12-06 09:14] LABS: Phosphorus 2.6 mg/dL (2.5-4.9)
--- NOTE | 2023-12-06 10:13 | DCINST_ITS ---
Discharge Instructions Diet Discharge Diet: Light diet - advance as tolerated and Soft diet Activity Discharge Activity: Return to Normal Activity and May Not Drive (For few days) Weight Bearing Status: Weight bearing as tolerated Dressing / Incision Call your doctor if you observe: Fever of 101 or Higher, Coldness, Increased Pain, Numbness or Tingling, Change in Color, Inability to urinate, Inability to have a bowel movement, Shortness of breath, Dizziness, Fainting spells, Swelling in the ankles, Chest pain, Prolonged hiccupping, Increased palpitations (irregular heartbeat) and Calf discomfort Follow Up Care When: IN 2 WEEKS Test Results: Test results from this visit will be discussed in further detail at your follow- up appointment, if applicable. Discharge Plan Admission Admit Date/Time: 12/05/23 12:30 Primary Reason for Your Visit: Acute enteritis Attending Provider: Lucian Tran Primary Care Provider: Aniket Paulson Discharge Orders/Prescriptions Prescriptions: New metronidazole 500 mg Tablet 500 mg PO TID 7 Days Qty: 21 0RF potassium, sodium phosphates 280-160-250 mg Powder In Packet 1 packet PO TID 2 Days Qty: 6 0RF pantoprazole 40 mg Tablet,Delayed Release (Dr/Ec) 40 mg PO DAILY 30 Days Qty: 30 0RF Continued Multiple Vitamin-Minerals Tablet 1 tab PO DAILY Zyrtec 10 mg capsule 10 mg PO DAILY PRN (Reason: allergy symptoms) omega-3 fatty acids 1,000 mg capsule 1,000 mg PO DAILY Held diclofenac sodium 75 mg tablet,delayed release (DR/EC) 75 mg PO BID Qty: 60 1RF Hold Instructions: Hold for 1 week. Referrals / Follow Up: Aniket Paulson MD [Primary Care Provider] - Adeel Hayden DO [Med Staff - Active Staff] - Within 1 Month Disposition Disposition (needs filled in before D/C Order can be placed): Home, Self Care
[2023-12-06] MEDS: Na Biphos/Potassium Phosphate PACKET 1 PACKET PO (11:39)
--- NOTE | 2023-12-06 13:16 | PCM.DC.SUM ---
Providers Date of Admission: 12/05/23 Date of Discharge: 12/06/23 Primary Care Physician: Dr. Aniket Paulson MD Reason For Visit: SYNCOPE, VASOVAGAL Diagnosis Discharge Diagnosis (1) Vasovagal syncope: Status: Acute Code(s): R55 - Syncope and collapse Plan This is 52-year-old gentleman being admitted for syncope resulting into fall 1. Syncope most likely vasovagal syncope with fall and small lacerated wound over right forehead/eyebrow: The wound was taken care in ED. No active bleeding. Patient is admitted in PCU as an observation. IV fluid Ringer lactate ordered for rehydration. unit receptionist shows normal sinus rhythm. Twelve-lead EKG in ED shows normal sinus rhythm 81 beats per. QTc normal 436 ms. 12/06: Orthostatic vitals shows stable BP 120/68 without increasing heart rate or drop in blood pressure. Dizziness has resolved. Patient still having diarrhea, liquid. Started on soft diet. Stool for occult blood and lactoferrin positive. Stool for C. difficile enteric bacteriology panel are pending.Patient wants to go home and relax. Prescription for Flagyl 500 mg 3 times daily for 7 days given. Patient advised to follow-up with GI in 1 month. His other stool tests are pending advised to follow with PCP. 2. Possible food poisoning with diarrhea resulting into dehydration: Patient had 2 large bowel movements. It seems diarrhea is stopped and recovered. Abdominal exam findings are benign with no tenderness. Regular diet. 12/06: Abdominal exam is benign. No tenderness or guarding or rigidity. 3. RADHA with severe hypophosphatemia: Patient baseline BUNs/creatinine is normal 16/1.07. Admitted with 23/1.38 consistent with RADHA. Phosphorus 0.8 severe hypophosphatemia. Serum magnesium level 2.3 normal. IV potassium phosphate replacement ordered. 12/06: Repeat serum for 2.6. Prescription for Neutra-Phos given. BUNs/creatinine 13/0.99 normal. RADHA resolved. 4. Past history of Crohn's disease, recovered: No acute issues over last 10 years. Unclear present diarrhea with occult blood, suspicion of recurrence of Crohn's disease. Need follow-up with GI as an outpatient. Living will/advanced directive/end of life care: Patient does have living will or advanced directive. His who is RN is power of creative arts therapist for health. After discussion of benefits/risks procedures involved with full code, DNR CC arrest and DNR CC, the patient opted for full code. Patient does want artificial life support including intubation, tube feed, ventilator and/chest compression, central venous catheter, vasopressor and DC shock if needed Total time spent in [id number] encounter in discussion of advanced directive 17 minutes. Microbiology Past 72 Hours 12/06/23 09:10 Stool Stool Lactoferrin - Final 12/06/23 09:10 Stool Stool Occult Blood (KAVIN) - Final Occult Blood Positive 12/05/23 16:55 Mucosa - Nasopharyngeal SARS-CoV-2, Influenza & RSV (PCR) - Final Laboratory Results 12/05/23 08:08: Phosphorus 0.8 L*, Magnesium 2.3 12/06/23 06:18: WBC 6.1, RBC 4.15 L, Hgb 11.9 L, Hct 37.2 L, MCV 89.6, MCH 28.7, MCHC 32.0, RDW Std Deviation 44.6 H, RDW Coeff of Myles 13.6, Plt Count 206, MPV 9.8, Immature Gran % (Auto) 0.200, Neut % (Auto) 69.2, Lymph % (Auto) 16.3 L, Warrick % (Auto) 10.4 H, Eos % (Auto) 3.6, Baso % (Auto) 0.3, Absolute Neuts (auto) 4.2, Absolute Lymphs (auto) 0.99, Nucleated RBC % 0, Sodium 139, Potassium 3.8, Chloride 111 H, Carbon Dioxide 21.0, Anion Gap 7, BUN 13, Creatinine 0.99, Estim Creat Clear Calc 100.67, Est GFR (MDRD) Af Amer 101, Est GFR (MDRD) Non-Af 83, BUN/Creatinine Ratio 13.1, Glucose 100, Calcium 7.8 L, Phosphorus 2.6 12/06/23 09:40: Stool Calprotectin Pending Medications at Discharge Home Medications cetirizine 10 mg capsule (Zyrtec) 10 mg PO DAILY PRN allergy symptoms 04/16/22 diclofenac sodium 75 mg tablet,delayed release 75 mg PO BID pain #60 tabs 04/16/22 multivitamin with minerals (Multiple Vitamin-Minerals tablet) 1 tab PO DAILY vitamin 04/16/22 omega-3 fatty acids 1,000 mg capsule 1,000 mg PO DAILY supplement 04/16/22 metronidazole 500 mg tablet 500 mg PO TID 7 days #21 tabs 12/06/23 pantoprazole 40 mg tablet,delayed release 40 mg PO DAILY 30 days #30 tabs 12/06/23 potassium, sodium phosphates 280 mg-160 mg-250 mg oral powder packet 1 packet PO TID 2 days #6 ea 12/06/23 Physical Exam Narrative Seen and examined. Patient still having diarrhea liquid, no visibly red, dark brown or blood. Physical exam General: Alert, Oriented x3, Cooperative HEENT: Atraumatic, PERRLA, EOMI, Normocephalic Oral: Oral mucosa moist. No Gingival or Mucosal Lesions/ Ulcerations Neck: Supple, No JVD, Negative Carotid Bruits Lungs: Air entry diminished in bilateral lung bases. No crepitation/rhonchi Cardiovascular: Regular rate, Regular Rhythm, Normal S1, Normal S2, No murmurs Abdomen: Bowel Sounds Present, Soft, Non Tender, Non-Distended : No renal angle tenderness. No suprapubic tenderness. Extremities: No edema, Capillary Refill Less than 3 Seconds Skin: Small lacerated wound above right eyebrow which was cleaned and sealed with Dermabond. Musculoskeletal: No Tenderness to Palpation of Joints or Extremities. Muscle strength 5/5 at major knee and hip joints Neurological: Cranial nerves II-XII grossly intact, DTR 2+/4. No acute focal neurological deficit. Psych/Mental Status: Normal Affect, Appropriate. Weight / BMI Weight Weight: 218 lb 7.649 oz Body Mass Index (BMI) 31.3 ABG / Lab / Microbiology Data 12/06/23 06:18 12/06/23 06:18 Laboratory: Laboratory Results - last 24 hr 12/05/23 08:08: Phosphorus 0.8 L*, Magnesium 2.3 12/06/23 06:18: WBC 6.1, RBC 4.15 L, Hgb 11.9 L, Hct 37.2 L, MCV 89.6, MCH 28.7, MCHC 32.0, RDW Std Deviation 44.6 H, RDW Coeff of Myles 13.6, Plt Count 206, MPV 9.8, Immature Gran % (Auto) 0.200, Neut % (Auto) 69.2, Lymph % (Auto) 16.3 L, Warrick % (Auto) 10.4 H, Eos % (Auto) 3.6, Baso % (Auto) 0.3, Absolute Neuts (auto) 4.2, Absolute Lymphs (auto) 0.99, Nucleated RBC % 0, Sodium 139, Potassium 3.8, Chloride 111 H, Carbon Dioxide 21.0, Anion Gap 7, BUN 13, Creatinine 0.99, Estim Creat Clear Calc 100.67, Est GFR (MDRD) Af Amer 101, Est GFR (MDRD) Non-Af 83, BUN/Creatinine Ratio 13.1, Glucose 100, Calcium 7.8 L, Phosphorus 2.6 Microbiology: Microbiology 12/06/23 09:10 Stool Stool Lactoferrin - Final 12/06/23 09:10 Stool Stool Occult Blood (KAVIN) - Final Occult Blood Positive 12/05/23 16:55 Mucosa - Nasopharyngeal SARS-CoV-2, Influenza & RSV (PCR) - Final D/C Instructions Discharge Diet: Light diet - advance as tolerated and Soft diet Weight Bearing Status: Weight bearing as tolerated Call your doctor if you observe: Fever of 101 or Higher, Coldness, Increased Pain, Numbness or Tingling, Change in Color, Inability to urinate, Inability to have a bowel movement, Shortness of breath, Dizziness, Fainting spells, Swelling in the ankles, Chest pain, Prolonged hiccupping, Increased palpitations (irregular heartbeat) and Calf discomfort When: IN 2 WEEKS Meaningful Use Info Meaningful Use Diagnoses (Choose all that apply): None applicable Discharge Plan Admission Admit Date/Time: 12/05/23 12:30 Primary Reason for Your Visit: Acute enteritis Attending Provider: Lucian Tran Primary Care Provider: Aniket Paulson Discharge Orders/Prescriptions Prescriptions: New metronidazole 500 mg Tablet 500 mg PO TID 7 Days Qty: 21 0RF potassium, sodium phosphates 280-160-250 mg Powder In Packet 1 packet PO TID 2 Days Qty: 6 0RF pantoprazole 40 mg Tablet,Delayed Release (Dr/Ec) 40 mg PO DAILY 30 Days Qty: 30 0RF Continued Multiple Vitamin-Minerals Tablet 1 tab PO DAILY Zyrtec 10 mg capsule 10 mg PO DAILY PRN (Reason: allergy symptoms) omega-3 fatty acids 1,000 mg capsule 1,000 mg PO DAILY Held diclofenac sodium 75 mg tablet,delayed release (DR/EC) 75 mg PO BID Qty: 60 1RF Hold Instructions: Hold for 1 week. Referrals / Follow Up: Aniket Paulson MD [Primary Care Provider] - Adeel Hayden DO [Med Staff - Active Staff] - Within 1 Month Disposition Disposition (needs filled in before D/C Order can be placed): Home, Self Care Charges/Coding Visit Charges Inpatient E&M: 58665 Disch Hosp >30min
[2023-12-06] MEDS: metroNIDAZOLE 500 MG Tablet PO (13:58)
[2023-12-09 15:07] LABS: Calprotectin, Stool 805 ug/g (0-120)
== END 2023-12-06 10:13 | disposition home or self-care (01) ==
LOC: ED 12:22 → PCU 13:01
PROVIDERS: Admitting Provider Internal Medicine; Emergency Provider Emergency Medicine; PCP Family Medicine; Visit Provider Internal Medicine
DX: R55 Syncope and collapse (principal); K50.90 Crohn's disease, unspecified, without complications; S01.81XA Laceration without foreign body of other part of head, initial encounter; Y93.89 Activity, other specified; W19.XXXA Unspecified fall, initial encounter; Y92.019 Unspecified place in single-family (private) house as the place of occurrence of the external cause; G62.9 Polyneuropathy, unspecified; Z79.899 Other long term (current) drug therapy; E83.39 Other disorders of phosphorus metabolism
CPT/HCPCS: 36415; 70450; 70486; 80048; 82274; 83630; 83735; 83993; 84100; 85025; 87493; 87506; 87631; 93005; 94668; 96361; 96372; 96374; 96376; 99221; 99285; J7030; J7050; J7120; A4216; G0378; J2405

== ENCOUNTER → 2023-12-22 | Outpatient (CLI) | payer BC, SELFPAY ==
--- OUTSIDE RECORDS SUMMARY | 2023-12-22 09:03 | XMS RPT_ITS | CCD ---
Author Name Unknown Address [address] [place] [address] [facility] ([place], [place]) [address] [place] [id number] Organization [facility] Care Team Providers Care Director Name Role Phone FERNANDO JUSTIN, DR SETHI Primary Care Physician Allergies Allergy Classification Reported Allergen(s) Allergy Type Date of Onset Reaction(s) Facility (1 source) mercaptopurine; Translations: [mercaptopurine] Drug Allergy Unknown (qualifier value) [facility] Work Phone: Medications Current Medications Medication Drug [...] End: 03-07-[address] STEVE UNNEZ MD [facility] Social History Date Type Detail Facility Start: 03-07-2022 Tobacco smoking status Never s moked tobacco (finding) [facility] Sex Assigned At Sex [facility] Evaluation + Plan note Note Date & Type Note Facility Evaluation + Plan note No data available for this section [facility] Hospital Discharge instructions Note Date & Type Note Facility Hospital Discharge instructions No data available for this section [facility] Progress note Note Date & Type Note Facility Progress note No data available for this section [facility] Additional Source Comments Care Team (unrecognized sect ion and content) Personnel Name: JOSSIE KING MD Address: [address] FOR RECORDS PERTAINING TO PATIENTS WHO [...] BE BASED ON THE PRIMARY CLINICAL RECORDS. [facility]. provides no warranty or guarantee of the accuracy or completeness of information in this document.
[2023-12-22 11:03] LABS: Anion Gap 4 (5-15); BUN 14 mg/dL (7-18); BUN/Creat Ratio 12.6 RATIO (10-20); Chloride 109 mmol/L (98-107); Creatinine, Serum 1.11 mg/dL (0.70-1.30); EST Glomerular Filtration Rate 73 mL/min (>60); Est Glom Filt Rate - Afr Amer 88 mL/min (>60); Glucose 87 mg/dL (74-106); Potassium 4.2 mmol/L (3.5-5.1); Sodium Level 140 mmol/L (136-145)
== END | disposition home or self-care (01) ==
LOC: MTLAB 08:41
PROVIDERS: PCP Family Medicine; Referring Provider Family Medicine; Visit Provider Family Medicine
DX: E83.51 Hypocalcemia (principal)
CPT/HCPCS: 36415; 80048

== ENCOUNTER → 2024-02-16 | Outpatient (CLI) | payer BC, SELFPAY ==
[2024-02-16 17:49] LABS: Erythrocyte Sedimentation Rate 16 mm/hr (0-20); Hematocrit 37.5 % (40-54); Hemoglobin 12.4 g/dL (13.0-16.5); Mean Corp Hgb Conc 33.1 g/dL (32-36); Mean Corpuscular Hgb 29.5 pg (27.0-32.0); Mean Corpuscular Volume 89.1 fL (80-94); Mean Platelet Vol. 10.2 fl (6.2-12.0); Platelet Count 255 K/mm3 (150-450); RBC Distribution Width CV 13.2 % (11.6-14.6); RBC Distribution Width SD 43.4 fl (35.1-43.9); Red Blood Count 4.21 M/mm3 (4.6-6.2); White Blood Count 8.1 K/mm3 (4.4-11.0)
[2024-02-16 17:58] LABS: AST(SGOT) 18 U/L (15-37); Alanine Aminotransfer ALT/SGPT 26 U/L (16-61); Albumin, Serum 3.9 g/dL (3.2-5.0); Alkaline Phosphatase 74 U/L (45-117); Bilirubin, Direct 0.22 mg/dL (0.00-0.30); CRP < 2.90 mg/L (0.0-3.0); Globulin 3.8 g/dL (2.2-4.2); Protein, Total 7.7 g/dL (6.4-8.2)
== END | disposition home or self-care (01) ==
PROVIDERS: PCP Family Medicine; Referring Provider Internal Medicine Gastroenterology; Visit Provider Internal Medicine Gastroenterology
DX: K50.90 Crohn's disease, unspecified, without complications (principal)
CPT/HCPCS: 36415; 80076; 85027; 85652; 86140

== ENCOUNTER → 2024-05-19 | Outpatient (CLI) | payer OTHER, SELFPAY ==
--- NOTE | 2024-05-19 15:10 | RAD_ITS ---
STUDY: X-RAY - LUMBAR SPINE REASON FOR EXAM: Male, 53 years old. Postlaminectomy syndrome. TECHNIQUE: 3 view(s) of the lumbar spine were obtained. COMPARISON: MRI of the lumbar spine dated December 2021 FINDINGS: Normal lumbar lordosis. No scoliosis. Normal alignment of the vertebral bodies. Diffuse mild lower thoracic and lumbosacral facet sclerosis. Intervertebral disc space narrowing diffusely with osteophytes most marked at L1-2, L2-3 and L3-4. Schmorl''s nodes at L1 unchanged from prior MRI study. Normal soft tissues. RAD/Lumbar Spine 2 or 3 Views IMPRESSION: Stable moderate lower thoracic and lumbosacral spondylosis as described. Electronically Signed: Cecil Callaway MD at 15:39 EDT ,
== END | disposition home or self-care (01) ==
PROVIDERS: PCP Family Medicine; Referring Provider Anesthesiology Pain Medicine; Visit Provider Anesthesiology Pain Medicine
DX: M96.1 Postlaminectomy syndrome, not elsewhere classified (principal)
CPT/HCPCS: 72100

== ENCOUNTER → 2024-06-02 | Outpatient (CLI) | payer OTHER, SELFPAY ==
--- NOTE | 2024-06-02 13:25 | MRI_ITS ---
STUDY: MRI LUMBAR SPINE WITHOUT CONTRAST REASON FOR EXAM: Male, 53 years old. POST LAMINECTOMY SYNDROME TECHNIQUE: Standardized fat and water weighted pulse sequences were obtained in the sagittal and axial planes. COMPARISON: 01/18/2022 FINDINGS: T12-L1: Normal endplates. Normal disc height, hydration and morphology. Normal bilateral facet joints. Normal central canal and bilateral lateral recesses. Normal bilateral intervertebral neural foramina. Normal lumbar lordosis. There is no substantial scoliosis. Normal conus medullaris that terminates at the T12/L1. L1-2: Disc desiccation but no disc protrusion, spinal stenosis, or neural foraminal stenosis. L2-3: Mild bilateral facet hypertrophy and moderate ligament flavum hypertrophy. No change in the moderate broad disc protrusion which produces moderate spinal stenosis with moderate bilateral lateral recess stenosis with abutment of the L3 nerve roots bilaterally and moderate bilateral neural foraminal stenosis with abutment of the exiting L2 nerve root laterally. L3-4: Mild bilateral facet hypertrophy and moderate ligament flavum hypertrophy. No change in the large broad disc protrusion which produces severe spinal stenosis with moderate bilateral lateral recess stenosis with abutment of the L4 nerve roots bilaterally and moderate bilateral neural foraminal stenosis with abutment of the exiting L3 nerve roots bilaterally. L4-5: Moderate bilateral facet hypertrophy and ligament flavum hypertrophy. Enlarging large disc protrusion produces severe spinal stenosis with severe lateral recess stenosis with effacement of the L5 nerve roots bilaterally and moderate bilateral neural foraminal stenosis with abutment of the exiting L4 nerve root laterally. L5-S1: Normal endplates. Normal disc height, hydration and morphology. Normal bilateral facet joints. Normal central canal and bilateral lateral recesses. Normal bilateral intervertebral neural foramina. Normal visualized sacral ala. Normal visualized paraspinous soft tissue structures. MRI/Spine Lumbar (Routine) IMPRESSION: Worsening degenerative disc disease as described above Electronically Signed: Jesse Savage MD at 16:33 EDT ,
== END | disposition home or self-care (01) ==
LOC: MRI 13:21
PROVIDERS: PCP Family Medicine; Referring Provider Anesthesiology Pain Medicine; Visit Provider Anesthesiology Pain Medicine
DX: M96.1 Postlaminectomy syndrome, not elsewhere classified (principal)
CPT/HCPCS: 72148